=== PATIENT | male | born 1990 | race Caucasian/White ===

== ENCOUNTER 2017-11-07 19:02 | Emergency (ER) | payer OTHER ==
[~2017-11-07] VITALS: Ht 177.8 cm; Wt 81.6 kg
[~2017-11-07 19:02] MED LIST: ACETAMINOPHEN-1 EAC1 PO; ACYCLOVIR 800800 MG PO; BACTRIM DS TAB1 EACH PO; CATAPRES0.2 MG PO; CLEOCIN HCL150 MG PO; CLONIDINE; CLONIDINE HCL0.3 M3 PO; DICLOFENAC SODI75 MG PO; DIFLUCAN150 MG PO; FLEXERIL PO; HYDROCODONE-AP1 EAC6 PO; IBUPROFEN 800800 M1 PO; IBUPROFEN 800800 MG PO; KEFLEX500 MG PO; KETOCONAZOLE60 GM TP; MEDROLDOSEPACK PO; MINOCIN100 MG PO; NOHOMEMEDICATIONS; NORCO 5-325 TA1 EAC1 PO; OMEPRAZOLE 20 M20 M1 PO; OXYCODONE HCL 55 MG PO; PEPCID20 MG PO; PROAIR HFA8.5 GM INH; ULTRAM 50MG TAB50 MG PO; VENTOLIN HFA 1818 GM INH
[2017-11-07 19:23] LABS: ABSOLUTE BASOPHILS 0.1 thou/uL (0.0-0.2); ABSOLUTE EOSINOPHILS 0.1 thou/uL (0.0-0.7); ABSOLUTE MONOCYTES 0.4 thou/uL (0.0-1.2); ABSOLUTE NEUTROPHILS 12.8 thou/uL (1.6-8.1); ANION GAP 9 mmol/L (7-16); BASOPHILS 0.4 %; BUN 8 mg/dL (7-18); CHLORIDE 100 mmol/L (98-107); CO2 26 mmol/L (21-32); EOSINOPHILS 0.5 %; GLUCOSE 117 mg/dL (70-99); HEMATOCRIT 44.2 % (42.0-52.0); HEMOGLOBIN 15.2 gm/dL (14.0-18.0); LYMPHOCYTES 13.1 %; MCH 31.2 pg (26.0-34.0); MCHC 34.3 g/dL (28.0-37.0); MCV 91.2 fL (80.0-100.0); MONOCYTES 2.6 %; MPV 9.1 fl. (7.2-11.1); NUCLEATED RBCS 0 /100WBC; PLATELET COUNT* 221 thou/uL (150-400); POLYS 83.4 %; POTASSIUM 4.1 mmol/L (3.5-5.1); RBC 4.85 mil/uL (4.50-6.00); RDW-CV 12.9 % (10.5-14.5); SODIUM 135 mmol/L (136-145); WBC 15.4 thou/uL (4.0-11.0)
[2017-11-07 19:30] LABS: ALBUMIN 4.4 g/dL (3.4-5.0); ALKALINE PHOSPHATASE 65 U/L (46-116); LIPASE 103 U/L (73-393); SGOT 25 U/L (15-37); SGPT 31 U/L (30-65); TOTAL BILIRUBIN 0.6 mg/dL (<0.1-1.0); TOTAL PROTEIN 7.8 g/dL (6.4-8.2); TROPONIN-I LEVEL <0.06 ng/mL (<0.06)
[2017-11-07] MEDS ORDERED: ZOLOFT25 MG PO (19:40)
[2017-11-07] MEDS ORDERED: CARVEDILOL12.5 MG (19:40)
[2017-11-07 20:19] LABS: AMP/METHAMP Negative (Negative); BARBITURATES Negative (Negative); BENZODIAZEPINES Negative (Negative); COCAINE Negative (Negative); METHADONE Negative (Negative); OPIATES Negative (Negative); PCP Negative (Negative); THC Negative (Negative)
[2017-11-07] MEDS ORDERED: TRAMADOL 50 MG50 MG PO (20:52)
[2017-11-07 21:19] VITALS: BP 154/72
--- NOTE | 2017-11-08 12:41 | EKG ---
[place] [address] ELECTROCARDIOGRAM REPORT Name: DANIELLE CAMPUZANO Room: [facility]#: [id number] Admission: 11/07/17 Attend Phys: Discharge: 11/07/17 Date of : [birth year] Report #: [id number] THIS REPORT FOR: //name// [facility] ED Test Date: 2017-11-07 Test Time: 19:03:46 Pat Name: DANIELLE CAMPUZANO Department: Room: Gender: M Boot Maker: CORNELIO : 1990 Requested By: Ruthann Polk Order Number: [id number] Reading MD: Gerry Mccormick Measurements Intervals [place] Rate: 57 P: 21 ME: 147 QRS: 69 QRSD: 110 T: 236 QT: 428 QTc: 417 Interpretive Statements Sinus rhythm LVH with IVCD and secondary repol abnrm ST depr, consider ischemia, inferior leads Anterior ST elevation, probably due to LVH Compared to ECG 12/07/2016 20:09:49 Intraventricular conduction delay now present Sinus arrhythmia no longer present T-wave abnormality no longer present Possible ischemia still present ST (T wave) deviation still present Electronically Signed On 11-08-2017 12:40:54 BACON SKINNER by Gerry Mccormick [email or web address] <ELECTRONICALLY SIGNED> By: Jose Mccormick MD, FAC 11/08/17 1240 02 02 Jose Mccormick MD, [facility] /EPI
[2018-01-25] MEDS ORDERED: AMLODIPINE BESYL5 M1 PO (11:24)
[2018-01-25] MEDS ORDERED: ASPIRIN325 PO (11:24)
[2018-01-25] MEDS ORDERED: AUGMENTIN 875-1 EACH PO (11:24)
[2018-01-27] MEDS ORDERED: IBUPROFEN 800800 M1 PO ×2 (10:46→23:42)
[2018-01-27] MEDS ORDERED: TRAMADOL 50 MG50 MG PO (10:46)
[2018-01-30] MEDS ORDERED: NORCO 5-325 TA1 EACH PO (17:17)
[2018-05-25] MEDS ORDERED: MOBIC7.5 MG PO (13:15)
[2018-05-25] MEDS ORDERED: CETIRIZINE HCL5 MG PO (13:19)
== END 2017-11-07 21:20 | disposition home or self-care (01) ==
LOC: M.ERS 19:02
PROVIDERS: Emergency Medicine
DX: G89.29 Other chronic pain (principal); R10.11 Right upper quadrant pain; J45.909 Unspecified asthma, uncomplicated; F41.9 Anxiety disorder, unspecified; I10 Essential (primary) hypertension; F17.210 Nicotine dependence, cigarettes, uncomplicated; Z88.0 Allergy status to penicillin

== ENCOUNTER 2017-11-26 04:14 | Emergency (ER) | payer OTHER ==
[~2017-11-26] VITALS: Ht 177.8 cm; Wt 81.7 kg
[~2017-11-26 04:14] MED LIST changes: +CARVEDILOL12.5 MG; +TRAMADOL 50 MG50 MG PO; +ZOLOFT25 MG PO
[2017-11-26] MEDS ORDERED: CLONIDINE0.1 PO (04:29)
[2017-11-26] MEDS ORDERED: ATIVAN0.5 MG PO (04:29)
[2017-11-26] MEDS ORDERED: HYDROCODONE-AP1 EAC6 PO (04:30)
[2017-11-26 04:50] VITALS: BP 135/85
[2018-01-25] MEDS ORDERED: AMLODIPINE BESYL5 M1 PO (11:24)
[2018-01-25] MEDS ORDERED: AUGMENTIN 875-1 EACH PO (11:24)
[2018-01-25] MEDS ORDERED: ASPIRIN325 PO (11:24)
[2018-01-27] MEDS ORDERED: TRAMADOL 50 MG50 MG PO (10:46)
[2018-01-27] MEDS ORDERED: IBUPROFEN 800800 M1 PO ×2 (10:46→23:42)
[2018-01-30] MEDS ORDERED: NORCO 5-325 TA1 EACH PO (17:17)
[2018-05-25] MEDS ORDERED: MOBIC7.5 MG PO (13:15)
[2018-05-25] MEDS ORDERED: CETIRIZINE HCL5 MG PO (13:19)
== END 2017-11-26 04:51 | disposition home or self-care (01) ==
LOC: M.ERS 04:14
DX: Z71.1 Person with feared health complaint in whom no diagnosis is made (principal); F32.9 Major depressive disorder, single episode, unspecified; F41.9 Anxiety disorder, unspecified; I10 Essential (primary) hypertension; F17.210 Nicotine dependence, cigarettes, uncomplicated; Z88.0 Allergy status to penicillin

== ENCOUNTER 2017-12-16 00:36 | Emergency (ER) | payer OTHER ==
[~2017-12-16] VITALS: Ht 175.3 cm; Wt 81.7 kg
[~2017-12-16 00:36] MED LIST changes: +ATIVAN0.5 MG PO; +CLONIDINE0.1 PO
[2017-12-16] MEDS ORDERED: LORAZEPAM 1 MG T1 M1 PO (00:45)
[2017-12-16] MEDS ORDERED: BUSPIRONE HCL15 MG PO (00:46)
[2017-12-16] MEDS ORDERED: CLONIDINE0.1 PO (01:07)
[2017-12-16 01:24] VITALS: BP 143/68
--- NOTE | 2017-12-16 10:00 | EKG ---
[place] [address] ELECTROCARDIOGRAM REPORT Name: DANIELLE CAMPUZANO [id number] Admission: 12/16/17 Attend Phys: Discharge: 12/16/17 Date of : [birth year] Report #: [id number] THIS REPORT FOR: //name// [facility] ED Test Date: 2017-12-16 Test Time: 00:42:29 Pat Name: DANIELLE CAMPUZANO Department: Room: Gender: M Keno Writer / Runner: MICAH : 1990 Requested By: Ruthann Polk Order Number: [id number] MD: Danielle Dee Measurements Intervals [place] Rate: 62 P: 32 [place]: 153 QRS: 80 QRSD: 105 T: 261 QT: 521 QTc: 530 Interpretive Statements Sinus rhythm Probable left atrial enlargement LVH with secondary repolarization abnormality ST depr, consider ischemia, inferior leads Anterior ST elevation, probably due to LVH Compared to ECG 11/07/2017 19:03:46 Possible ischemia still present ST (T wave) deviation still present Electronically Signed On 12-16-2017 10:00:22 CDT by Danielle Dee [email or web address] <ELECTRONICALLY SIGNED> By: Danielle Dee MD, FACC 12/16/17 1000 0042 0042 Danielle Dee MD, [facility] /EPI
[2018-01-25] MEDS ORDERED: AUGMENTIN 875-1 EACH PO (11:24)
[2018-01-25] MEDS ORDERED: ASPIRIN325 PO (11:24)
[2018-01-25] MEDS ORDERED: AMLODIPINE BESYL5 M1 PO (11:24)
[2018-01-27] MEDS ORDERED: IBUPROFEN 800800 M1 PO ×2 (10:46→23:42)
[2018-01-27] MEDS ORDERED: TRAMADOL 50 MG50 MG PO (10:46)
[2018-01-30] MEDS ORDERED: NORCO 5-325 TA1 EACH PO (17:17)
[2018-05-25] MEDS ORDERED: MOBIC7.5 MG PO (13:15)
[2018-05-25] MEDS ORDERED: CETIRIZINE HCL5 MG PO (13:19)
== END 2017-12-16 01:24 | disposition home or self-care (01) ==
LOC: M.ERS 00:36
DX: F41.9 Anxiety disorder, unspecified (principal); F32.9 Major depressive disorder, single episode, unspecified; I10 Essential (primary) hypertension; F17.210 Nicotine dependence, cigarettes, uncomplicated; Z88.0 Allergy status to penicillin

== ENCOUNTER 2017-12-25 22:17 | Emergency (ER) | payer OTHER ==
[~2017-12-25] VITALS: Ht 177.8 cm; Wt 77.1 kg
[~2017-12-25 22:17] MED LIST changes: +BUSPIRONE HCL15 MG PO; +LORAZEPAM 1 MG T1 M1 PO
[2017-12-25] MEDS ORDERED: ATIVAN1 MG PO (23:33)
[2017-12-25] MEDS ORDERED: CLONIDINE0.1 PO (23:33)
[2017-12-26 00:06] VITALS: BP 137/61
[2018-01-25] MEDS ORDERED: AMLODIPINE BESYL5 M1 PO (11:24)
[2018-01-25] MEDS ORDERED: ASPIRIN325 PO (11:24)
[2018-01-25] MEDS ORDERED: AUGMENTIN 875-1 EACH PO (11:24)
[2018-01-27] MEDS ORDERED: TRAMADOL 50 MG50 MG PO (10:46)
[2018-01-27] MEDS ORDERED: IBUPROFEN 800800 M1 PO ×2 (10:46→23:42)
[2018-01-30] MEDS ORDERED: NORCO 5-325 TA1 EACH PO (17:17)
[2018-05-25] MEDS ORDERED: MOBIC7.5 MG PO (13:15)
[2018-05-25] MEDS ORDERED: CETIRIZINE HCL5 MG PO (13:19)
== END 2017-12-26 00:08 | disposition home or self-care (01) ==
LOC: M.ERS 22:17
DX: F41.9 Anxiety disorder, unspecified (principal); Z76.0 Encounter for issue of repeat prescription; F32.9 Major depressive disorder, single episode, unspecified; I10 Essential (primary) hypertension; Z88.0 Allergy status to penicillin

== ENCOUNTER 2018-01-08 18:11 | Emergency (ER) | payer OTHER ==
[~2018-01-08] VITALS: Ht 177.8 cm; Wt 72.6 kg
[~2018-01-08 18:11] MED LIST changes: +ATIVAN1 MG PO
[2018-01-08] MEDS ORDERED: CLONIDINE0.1 PO (18:24)
[2018-01-08 18:48] VITALS: BP 159/90
[2018-01-25] MEDS ORDERED: AUGMENTIN 875-1 EACH PO (11:24)
[2018-01-25] MEDS ORDERED: ASPIRIN325 PO (11:24)
[2018-01-25] MEDS ORDERED: AMLODIPINE BESYL5 M1 PO (11:24)
[2018-01-27] MEDS ORDERED: TRAMADOL 50 MG50 MG PO (10:46)
[2018-01-27] MEDS ORDERED: IBUPROFEN 800800 M1 PO ×2 (10:46→23:42)
[2018-01-30] MEDS ORDERED: NORCO 5-325 TA1 EACH PO (17:17)
[2018-05-25] MEDS ORDERED: MOBIC7.5 MG PO (13:15)
[2018-05-25] MEDS ORDERED: CETIRIZINE HCL5 MG PO (13:19)
== END 2018-01-08 18:40 | disposition home or self-care (01) ==
LOC: M.ERS 18:11
DX: F41.9 Anxiety disorder, unspecified (principal); I10 Essential (primary) hypertension; Z76.0 Encounter for issue of repeat prescription; F32.9 Major depressive disorder, single episode, unspecified; F17.210 Nicotine dependence, cigarettes, uncomplicated

== ENCOUNTER 2018-01-21 09:40 | Inpatient (IN) | payer OTHER ==
[~2018-01-21] VITALS: Ht 177.8 cm; Wt 71.7 kg
[2018-01-21] VITALS (7 sets, daily range): BP systolic 81–137; BP diastolic 37–60
[2018-01-21 10:30] LABS: HEMATOCRIT 44.9 % (42.0-52.0); HEMOGLOBIN 15.4 gm/dL (14.0-18.0); MCH 30.4 pg (26.0-34.0); MCHC 34.3 g/dL (28.0-37.0); MCV 88.8 fL (80.0-100.0); MPV 8.3 fl. (7.2-11.1); RBC 5.06 mil/uL (4.50-6.00); WBC 7.5 thou/uL (4.0-11.0)
[2018-01-21 11:17] LABS: ANION GAP 11 mmol/L (7-16); BUN 10 mg/dL (7-18); CALCIUM 9.2 mg/dL (8.5-10.1); CHLORIDE 105 mmol/L (98-107); CO2 26 mmol/L (21-32); CREATININE 0.9 mg/dL (0.6-1.3); GLUCOSE 115 mg/dL (70-99); POTASSIUM 4.3 mmol/L (3.5-5.1); SODIUM 142 mmol/L (136-145)
[2018-01-21 11:27] LABS: ALBUMIN 4.2 g/dL (3.4-5.0); ALKALINE PHOSPHATASE 56 U/L (46-116); SGOT 36 U/L (15-37); SGPT 48 U/L (30-65); TOTAL BILIRUBIN 1.3 mg/dL (<0.1-1.0); TOTAL PROTEIN 7.4 g/dL (6.4-8.2); TROPONIN-I LEVEL <0.06 ng/mL (<0.06)
[2018-01-21 13:45] LABS: AMP/METHAMP Negative (Negative); BARBITURATES Negative (Negative); BENZODIAZEPINES Negative (Negative); COCAINE Negative (Negative); METHADONE Negative (Negative); OPIATES Negative (Negative); PCP Negative (Negative); THC Negative (Negative)
--- NOTE | 2018-01-21 15:33 | 2DMMODE ---
[place] [address] 2 D/M-MODE ECHOCARDIOGRAM Name: DANIELLE CAMPUZANO Room: [address] IN [facility]#: [id number] Admission: 01/21/18 Attend Phys: Monika Schaeffer, Discharge: Date of : 86 Date of Service: 01/21/18 1532 Report #: [id number] THIS REPORT FOR: //name// APPROVED REPORT Study performed: 01/21/2018 13:20:30 EXAM: Comprehensive 2D, Doppler, and color-flow Echocardiogram Patient Location: In-Patient Room #: ER Status: routine BSA: 1.90 HR: 47 bpm BP: 154/96 mmHg Rhythm: Bradycardia Other Information Study Quality: Good Indications Bradycardia 2D Dimensions LVEF(%): 67.25 (>50%) IVSd: 12.67 (7-11mm) LVOT Diam: 19.68 (18-24mm) LVDd: 47.25 mm PWd: 11.35 (7-11mm) Ascending Ao: 30.77 (22-36mm) LVDs: 29.62 (25-40mm) Aortic Root: 30.30 mm Rodriguez's LVEF: 67.25 % Volumes Left Atrial Volume (Systole) LA ESV Index: 32.00 mL/m2 Aortic Valve AoV Peak Griffin.: 1.43 m/s AO Peak Gr.: 8.21 mmHg LVOT Max P.66 mmHg AO Mean Gr.: 4.26 mmHg LVOT Mean P.55 mmHg LVOT Max V: 1.38 m/s AO V2 VTI: 26.04 cm LVOT Mean V: 0.85 m/s MAGALI (VTI): 3.26 cm2 LVOT V1 VTI: 27.91 cm Mitral Valve E/A Ratio: 1.05 [place] [address] 2 D/M-MODE ECHOCARDIOGRAM Name: DANIELLE CAMPUZANO Room: [address] IN .R.#: [id number] Admission: 01/21/18 Attend Phys: Monika Schaeffer, Discharge: Date of : 86 Date of Service: 01/21/18 1532 Report #: [id number] MV Decel. Time: 210.24 ms MV E Max Griffin.: 0.91 m/s MV PHT: 60.97 ms MVA (PHT): 3.61 cm2 TDI E/Lateral E': 8.27 E/Medial E': 10.11 Medial E' Griffin.: 0.09 m/s Lateral E' Griffin.: 0.11 m/s Pulmonary Valve PV Peak Griffin.: 1.08 m/s PV Peak Gr.: 4.68 mmHg Left Ventricle The left ventricle is normal size. There is normal LV segmental wall motion. Mild concentric left ventricular hypertrophy. Left ventricular systolic function is normal. The left ventricular ejection fraction is within the normal range. LVEF is 60-65%. The left ventricular diastolic function is normal. Right Ventricle The right ventricle is normal size. The right ventricular systolic function is normal. Atria The left atrium size is normal. The right atrium size is normal. Aortic Valve Mild aortic valve sclerosis. Trace aortic regurgitation. There is no aortic valvular stenosis. Mitral Valve The mitral valve is normal in structure. Mild mitral regurgitation. No evidence of mitral valve stenosis. Tricuspid Valve The tricuspid valve is normal in structure. Unable to assess PA pressure. Trace tricuspid regurgitation. Pulmonic Valve The pulmonary valve is normal in structure. There is no pulmonic valvular regurgitation. Great Vessels The aortic root is normal in size. IVC [place] [address] 2 D/M-MODE ECHOCARDIOGRAM Name: DANIELLE CAMPUZANO Room: [address] IN [facility]#: [id number] Admission: 01/21/18 Attend Phys: Monika Schaeffer, Discharge: Date of : 86 Date of Service: 01/21/18 1532 Report #: [id number] collapses with >50% inspiration Pericardium There is no pericardial effusion. <Conclusion> The left ventricle is normal size. Mild concentric left ventricular hypertrophy. Left ventricular systolic function is normal. The left ventricular ejection fraction is within the normal range. LVEF is 60-65%. The left ventricular diastolic function is normal. The right ventricle is normal size. The left atrium size is normal. Mild aortic valve sclerosis. Trace aortic regurgitation. There is no aortic valvular stenosis. The mitral valve is normal in structure. Mild mitral regurgitation. The tricuspid valve is normal in structure. IVC is normal in size and collapses with >50% inspiration There is no pericardial effusion. There is normal LV segmental wall motion. <ELECTRONICALLY SIGNED> By: Jevon Serrano MD, FACC 01/21/18 153 31 31 Jevon Serrano MD, FACC /INF
--- NOTE | 2018-01-21 16:38 | EKG ---
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: Jo-Ann YOUNGER : 1990 Requested By: Uri Beebe Order Number: [id number] MD: Jevon Serrano Measurements Intervals [place] Rate: 35 P: 25 [place]: 142 QRS: 72 QRSD: 102 T: 239 QT: 506 QTc: 386 Interpretive Statements Sinus bradycardia Probable LVH with secondary repol abnrm Repol abnrm, global ischemia, diffuse leads Anterior ST elevation, probably due to LVH Compared to ECG 12/16/2017 00:42:29 Sinus rate has decreased Possible ischemia still present ST (T wave) deviation still present Electronically Signed On 01-21-2018 16:38:44 CDT by Jevon Serrano [email or web address] <ELECTRONICALLY SIGNED> By: Jevon Serrano MD, FAC 01/21/18 1638 1018 1018 Jevon Serrano MD, [facility] /EPI
--- NOTE | 2018-01-21 16:40 | EKG ---
[place] [address] ELECTROCARDIOGRAM REPORT Name: DANIELLE CAMPUZANO Room: [place] [address] ADM IN .R.#: [id number] Admission: 01/21/18 Attend Phys: Monika Schaeffer MD Discharge: Date of : [birth year] Report #: [id number] THIS REPORT FOR: //name// [facility] ED Test Date: 2018-01-21 Test Time: 12:39:08 Pat Name: DANIELLE CAMPUZANO Department: Room: [facility] Gender: Set Builder: Jo-Ann YOUNGER : 1990 Requested By: Uri Beebe Order Number: [id number] MD: Jevon Serrano Measurements Intervals [place] Rate: 30 P: 36 [place]: 166 QRS: 70 QRSD: 115 T: 237 QT: 530 QTc: 375 Interpretive Statements Sinus bradycardia LVH with IVCD and secondary repol abnrm ST depr, consider ischemia, inferior leads Anterior ST elevation, probably due to LVH Compared to ECG 12/16/2017 00:42:29 Intraventricular conduction delay now present Possible ischemia still present ST (T wave) deviation still present Electronically Signed On 01-21-2018 16:40:26 CDT by Jevon Serrano [email or web address] <ELECTRONICALLY SIGNED> By: Jevon Serrano MD, FACC 01/21/18 1640 1239 1239 Jevon Serrano MD, FAC /EPI
[2018-01-22] VITALS (11 sets, daily range): BP systolic 98–158; BP diastolic 4–90
[2018-01-22 04:55] LABS: CALCIUM 9.1 mg/dL (8.5-10.1); CREATININE 0.9 mg/dL (0.6-1.3); POTASSIUM 4.1 mmol/L (3.5-5.1)
[2018-01-22 05:00] LABS: ALBUMIN 4.7 g/dL (3.4-5.0); TOTAL BILIRUBIN 0.9 mg/dL (<0.1-1.0)
[2018-01-22 10:46] LABS: AMP/METHAMP Negative (Negative); BARBITURATES Negative (Negative); BENZODIAZEPINES Negative (Negative); COCAINE Negative (Negative); METHADONE Negative (Negative); OPIATES POSITIVE (Negative); PCP Negative (Negative); THC Negative (Negative)
--- NOTE | 2018-01-22 11:33 | EKG ---
[place] [address] ELECTROCARDIOGRAM REPORT Name: DANIELLE CAMPUZANO Room: [address] ADM IN M.R.#: [id number] Admission: 01/21/18 Attend Phys: Monika Schaeffer MD Discharge: Date of : [birth year] Report #: [id number] THIS REPORT FOR: //name// [facility] Test Date: 2018-01-21 Test Time: 23:33:12 Pat Name: DANIELLE CAMPUZANO Department: Room: [address] Gender: M Hog Grader: Jo-Ann ARANA RN : 1990 Requested By: Chivo Desai Order Number: [id number] Marcial MD: Chivo Desai Measurements Intervals [place] Rate: 38 P: 51 [place]: 156 QRS: 75 QRSD: 116 T: 223 QT: 502 QTc: 399 Interpretive Statements Sinus bradycardia LVH with IVCD and secondary repol abnrm Anterior ST elevation, probably due to LVH Baseline wander in lead(s) V1,V4,V6 Compared to ECG 01/21/2018 12:39:08 Possible ischemia no longer present ST (T wave) deviation still present Electronically Signed On 01-22-2018 11:32:45 CDT by Chivo Desai [email or web address] <ELECTRONICALLY SIGNED> By: Chivo Desai MD, FACC 01/22/18 1132 2333 2333 Chivo Desai MD, FACC /EPI
[2018-01-22 15:07] LABS: HEPATITIS B SURFACE AG Negative (Negative)
[2018-01-22 21:07] LABS: HIV-1/HIV-2 ANTIBODY Non Reactive (Non Reactive)
[2018-01-23 03:55] VITALS: BP 127/74
[2018-01-23 04:47] LABS: HEMATOCRIT 39.3 % (42.0-52.0); HEMOGLOBIN 13.5 gm/dL (14.0-18.0); MCH 30.5 pg (26.0-34.0); MCHC 34.3 g/dL (28.0-37.0); MPV 9.1 fl. (7.2-11.1); RBC 4.41 mil/uL (4.50-6.00); RDW-CV 13.3 % (10.5-14.5); WBC 6.8 thou/uL (4.0-11.0)
[2018-01-23 05:05] LABS: ALBUMIN 3.4 g/dL (3.4-5.0); CALCIUM 8.5 mg/dL (8.5-10.1); CREATININE 0.8 mg/dL (0.6-1.3); POTASSIUM 4.3 mmol/L (3.5-5.1); TOTAL BILIRUBIN 0.5 mg/dL (<0.1-1.0); TOTAL PROTEIN 5.7 g/dL (6.4-8.2)
[2018-01-23 08:00] VITALS: BP 125/80
[2018-01-23 12:56] VITALS: BP 122/73
[2018-01-23 16:55] VITALS: BP 150/95
[2018-01-23 20:00] VITALS: BP 153/83
[2018-01-24] VITALS (7 sets, daily range): BP systolic 104–136; BP diastolic 44–83
[2018-01-24 04:27] LABS: HEMATOCRIT 40.1 % (42.0-52.0); HEMOGLOBIN 13.8 gm/dL (14.0-18.0); MCH 30.5 pg (26.0-34.0); MCHC 34.4 g/dL (28.0-37.0); MCV 88.7 fL (80.0-100.0); MPV 9.4 fl. (7.2-11.1); RBC 4.52 mil/uL (4.50-6.00); RDW-CV 13.1 % (10.5-14.5)
[2018-01-24 04:39] LABS: ALBUMIN 3.5 g/dL (3.4-5.0); CALCIUM 8.8 mg/dL (8.5-10.1); CREATININE 0.8 mg/dL (0.6-1.3); MAGNESIUM 2.1 mg/dL (1.8-2.4); POTASSIUM 4.2 mmol/L (3.5-5.1); TOTAL BILIRUBIN 0.4 mg/dL (<0.1-1.0); TOTAL PROTEIN 6.1 g/dL (6.4-8.2)
--- NOTE | 2018-01-24 13:23 | EKG ---
[place] [address] ELECTROCARDIOGRAM REPORT Name: DANIELLE CAMPUZANO Room: [address] ADM IN M.R.#: [id number] Admission: 01/21/18 Attend Phys: Monika Schaeffer MD Discharge: Date of : [birth year] Report #: [id number] THIS REPORT FOR: //name// [facility] Test Date: 2018-01-23 Test Time: 12:24:26 Pat Name: DANIELLE LUONGY Department: Room: [address] Gender: M Tank Farm Operator: [facility] : 1990 Requested By: Monika Schaeffer Order Number: [id number] Marcial MD: Chivo Desai Measurements Intervals [place] Rate: 35 P: 0 CT: 160 QRS: 62 QRSD: 111 T: 232 QT: 485 QTc: 370 Interpretive Statements Sinus bradycardia Probable left ventricular hypertrophy Abnormal T, consider ischemia, diffuse leads Compared to previous EKG No significant changes noted Electronically Signed On 01-24-2018 13:23:17 CDT by Chivo Desai [email or web address] <ELECTRONICALLY SIGNED> By: Chivo Desai MD, [facility] 01/24/18 1323 1224 1224 Chivo Desai MD, FAC /EPI
[2018-01-25 03:46] VITALS: BP 111/47
[2018-01-25 05:39] LABS: HEMATOCRIT 39.8 % (42.0-52.0); HEMOGLOBIN 13.8 gm/dL (14.0-18.0); MCH 30.5 pg (26.0-34.0); MCHC 34.6 g/dL (28.0-37.0); MCV 88.2 fL (80.0-100.0); MPV 9.6 fl. (7.2-11.1); RBC 4.51 mil/uL (4.50-6.00); RDW-CV 13.5 % (10.5-14.5); WBC 11.3 thou/uL (4.0-11.0)
[2018-01-25 06:05] LABS: ALBUMIN 3.5 g/dL (3.4-5.0); CALCIUM 8.9 mg/dL (8.5-10.1); CREATININE 0.9 mg/dL (0.6-1.3); POTASSIUM 4.1 mmol/L (3.5-5.1); TOTAL BILIRUBIN 0.4 mg/dL (<0.1-1.0); TOTAL PROTEIN 6.2 g/dL (6.4-8.2)
[2018-01-25 07:54] VITALS: BP 117/63
[2018-01-25] MEDS ORDERED: AUGMENTIN 875-1 EACH PO ×2 (11:24)
[2018-01-25] MEDS ORDERED: ASPIRIN325 PO ×2 (11:24)
[2018-01-25] MEDS ORDERED: AMLODIPINE BESYL5 M1 PO ×2 (11:24)
[2018-01-25 11:58] VITALS: BP 116/53
[2018-01-25 16:00] VITALS: BP 113/64
[2018-01-25 20:00] VITALS: BP 123/59
[2018-01-25 23:40] VITALS: BP 130/57
[2018-01-26] VITALS (11 sets, daily range): BP systolic 106–156; BP diastolic 35–98
[2018-01-26 09:02] LABS: AMP/METHAMP Negative (Negative); BARBITURATES Negative (Negative); BENZODIAZEPINES Negative (Negative); COCAINE Negative (Negative); METHADONE Negative (Negative); OPIATES Negative (Negative); PCP Negative (Negative); THC Negative (Negative)
--- NOTE | 2018-01-26 16:42 | EKG ---
[place] [address] ELECTROCARDIOGRAM REPORT Name: DANIELLE CAMPUZANO Room: [address] ADM IN M.R.#: [id number] Admission: 01/21/18 Attend Phys: Monika Schaeffer MD Discharge: Date of : [birth year] Report #: [id number] THIS REPORT FOR: //name// [facility] Test Date: 2018-01-26 Test Time: 11:38:11 Pat Name: DANIELLE CAMPUZANO Department: Room: [address] Gender: M Webbing Weaver: : 1990 Requested By: Chivo Desai Order Number: [id number] Marcial MD: Chivo Desai Measurements Intervals [place] Rate: 47 P: 28 [place]: 163 QRS: 69 QRSD: 110 T: -87 QT: 437 QTc: 387 Interpretive Statements Sinus bradycardia LVH with IVCD and secondary repol abnrm Anterior ST elevation, probably due to LVH Baseline wander in lead(s) II,III,aVF Compared to ECG 01/23/2018 12:24:26 Intraventricular conduction delay now present Early repolarization now present ST (T wave) deviation now present T-wave abnormality no longer present Possible ischemia no longer present Electronically Signed On 01-26-2018 16:42:07 CDT by Chivo Desai [email or web address] <ELECTRONICALLY SIGNED> By: Chivo Desai MD, [facility] 01/26/18 1642 1138 1138 Chivo Desai MD, [facility] /EPI
--- NOTE | 2018-01-26 17:13 | TEE ---
[place] [address] TRANSESOPHAGEAL ECHOCARDIOGRAM Name: DANIELLE CAMPUZANO Room: [address] IN [facility]#: [id number] Admission: 01/21/18 Attend Phys: Monika Schaeffer, Discharge: Date of : 86 Date of Service: 01/26/18 1712 Report #: [id number] THIS REPORT FOR: //name// APPROVED REPORT Study performed: 01/26/2018 11:33:24 EXAM: Transesophageal Echocardiogram Patient Location: In-Patient Room #: 219 Status: routine BSA: 1.91 HR: 49 bpm BP: 143/53 mmHg Rhythm: Bradycardia Indications Murmur Echo Enhancing Agent Indication: Rule out Shunt Agent(s) / Amount(s) Used: Agitated Saline 10 cc Procedure After obtaining informed consent, patient underwent transesophageal echo in the [facility] [employer]. Type of Sedation : General Anesthesia Sedation was administered by Anesthesiologist. Sedation start time: 1157 Case end Time: 1210 Sedation was achieved intravenously with: Propofol (300) Transesophageal probe was inserted and advanced into esophagus without difficulty by Chivo Desai MD, [facility]. Echo enhancement indication: R/O Septal defect. Echo enhancement agent administered: Agitated Saline The ASCENCION was performed without complications. Throughout the procedure, the blood pressure, pulse oximetry, cardiac rhythm, and rate were monitored. The patient tolerated the procedure without adverse effects. Recovery from conscious sedation was uneventful and vital signs were stable. Left Ventricle The left ventricle is normal size. There is normal LV segmental wall motion. There appears to be asymmetric hypertrophy to a moderate [facility] [address] [place] [address] TRANSESOPHAGEAL ECHOCARDIOGRAM Name: DANIELLE CAMPUZANO Room: [address] IN [facility].#: [id number] Admission: 01/21/18 Attend Phys: Monika Schaeffer, Discharge: Date of : 86 Date of Service: 01/26/18 1712 Report #: [id number] degree involving nearly the lateral wall. Left ventricular systolic function is normal. The left ventricular ejection fraction is within the normal range. LVEF is 65-70%. Right Ventricle The right ventricle is normal size. The right ventricular systolic function is normal. Atria No thrombus is visualized in the left atrium or appendage. Interatrial septum is intact without evidence of ASD or PFO. The right atrium size is normal. Aortic Valve The aortic valve is normal in structure. No aortic regurgitation is present. There is no aortic valvular stenosis. Mitral Valve The mitral valve is normal in structure. Mild mitral regurgitation. No evidence of mitral valve stenosis. Tricuspid Valve The tricuspid valve is normal in structure. There is no tricuspid valve regurgitation noted. Pulmonic Valve The pulmonary valve is normal in structure. There is no pulmonic valvular regurgitation. Great Vessels The aortic root is normal in size. Pericardium There is no pericardial effusion. <Conclusion> The left ventricle is normal size. There appears to be asymmetric hypertrophy to a moderate degree involving nearly the lateral wall. Left ventricular systolic function is normal. The left ventricular ejection fraction is within the normal range. LVEF is 65-70%. Interatrial septum is intact without evidence [place] [address] TRANSESOPHAGEAL ECHOCARDIOGRAM Name: DANIELLE CAMPUZANO Room: [address] IN M.R.#: [id number] Admission: 01/21/18 Attend Phys: Monika Schaeffer, Discharge: Date of : 86 Date of Service: 01/26/181711 Report #: [id number] No thrombus is visualized in the left atrium or appendage. Mild mitral regurgitation. <ELECTRONICALLY SIGNED> By: Chivo Desai MD, FACC 01/26/181711 11 11 Chivo Desai MD, FACC /INF
--- NOTE | 2018-01-26 18:30 | CARD ---
[address] [address] CARDIAC CATH REPORT Name: DANIELLE CAMPUZANO Room: [address] IN [facility]#: [id number] Admission: 01/21/18 Attend Phys: Monika Schaeffer MD Discharge: Date of : [birth year] Report #: [id number] THIS REPORT FOR: //name// APPROVED REPORT Study performed: 01/26/2018 14:42:25 Patient Status: In-Patient Room #: 219 Event Personnel: Chivo Desai Laborer [place]chard, Soha Reza RN Strategic Planner, Galen Hung (R) Tan Ritter Diane Monitor Exam: Insertion of Dual Chamber Permanent Pacemaker Indications: severe symptomatic persistent sinus bradycardia The patient is a 27 year-old male with a history of severe symptomatic persistent sinus bradycardia. Conscious Sedation Start time: 15:25 End Time: 16:05 Fentanyl 75 mcg Versed 3 mg Implanted Devices: asgoodasnew electronics GmbHronik Eluna 8 DRT pro-MRI, model #633012, serial #[id number]. Biotronik Solia S 53, model #817998, serial #[id number]. Biotronik Solia S 60, model #053691, serial #[id number] Procedure The patient underwent informed consent. We discussed the details of the procedure including the risks, which include, but not limited to bleeding, infection, vascular damage, cardiac perforation, and pneumothorax. After informed consent was obtained the patient was brought to the interventional radiology lab. The area of the left chest was prepped and draped in sterile fashion. Local anesthesia was achieved with 1% lidocaine. Next after an initial incision was made a device pocket was formed over the left pectoralis muscle using a left coronary and blunt dissection. Next using a micropuncture kit the left subclavian vein was accessed and a safety J guidewire ultimately advanced to the level of the right atrium under fluoroscopic guidance. The guidewire was secured externally with a Shawanda forcep. Utilizing the micropuncture kit a second time the left subclavian vein was accessed. A second safety J guidewire was advanced to the area of the right atrium under fluoroscopic guidance. Next a 7 Trinidadian tear-away introducer was advanced over the free guidewire. Dilator and guidewire were removed and a right ventricular [place] [address] CARDIAC CATH REPORT Name: DANIELLE CAMPUZANO Room: [address]#: [id number] Admission: 01/21/18 Attend Phys: Monika Schaeffer MD Discharge: Date of : 86 Report #: [id number] secure position along the right ventricular septum under fluoroscopic guidance. The lead was actively fixed. Thresholds were checked and deemed to be satisfactory. The tear-away introducer was removed. Next utilizing the remaining guidewire a second 6 Trinidadian tear-away introducer was advanced. The dilator and guidewire were removed has a right atrial lead was advanced to a secure position within the right atrial appendage. The lead was actively fixed. Thresholds were checked and deemed to be satisfactory. The tear-away introducer was then removed. There was no diaphragmatic or phrenic nerve stimulation with maximal outputs. After ensuring adequate slack the atrial and ventricular leads were then secured within the device pocket using the designated cuff and interrupted stitches of 2-0 silk suture. The device pocket was then flushed with antibiotic solution. Next a dual-chamber pulse generator was attached to the atrial and ventricular leads. The pulse generator and redundant lead were then placed within the device pocket. The deep tissues were closed with interrupted stitches of 2-0 Vicryl. The skin incision was then closed with a single subcuticular stitch of 4-0 Vicryl. Several Steri-Strips were placed across the incision. A sterile Telfa dressing was then covered with a Tegaderm. The patient tolerated well without complication. Electrode Parameters P Wave: 3.60 mV R Wave: 13.40 mV Atrial Threshold: 0.8 V at 0.40 ms Ventricular Threshold: 1.0 V at 0.40 ms Ventricular Resistance: 526 ohms 604 ohms Mode: AAIR Lower pacing rate 60 bpm Upper tracking rate 130 bpm Mode switch rate 160 bpm Complications The patient tolerated the procedure well and there were no complications associated with the procedure. Conclusion 1. Severe symptomatic persistent sinus bradycardia. 2. Successful implantation of a dual-chamber pacemaker with atrial and [place] [address] CARDIAC CATH REPORT Name: DANIELLE CAMPUZANO Room: [address] IN ..#: [id number] Admission: 01/21/18 Attend Phys: Monika Schaeffer MD Discharge: Date of : 86 Report #: [id number] Recommendations 1. Follow-up in one week for site check. <ELECTRONICALLY SIGNED> By: Chivo Desai MD, FACC 01/26/181829 29 29Michaehoda Desai MD, FACC /INF
[2018-01-27 04:00] VITALS: BP 142/60
[2018-01-27 08:00] VITALS: BP 120/44; BP 154/81
[2018-01-27] MEDS ORDERED: IBUPROFEN 800800 M1 PO ×3 (10:46→23:42)
[2018-01-27] MEDS ORDERED: TRAMADOL 50 MG50 MG PO ×2 (10:46)
--- NOTE | 2018-01-27 11:12 | EKG ---
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: : 1990 Requested By: Monika Schaeffer Order Number: [id number] Reading MD: Leighton Dee Measurements Intervals [place] Rate: 64 P: 34 [place]: 149 QRS: 76 QRSD: 100 T: 265 QT: 395 QTc: 408 Interpretive Statements Sinus rhythm Probable LVH with secondary repol abnormality Anterior ST elevation, probably due to LVH Compared to ECG 01/26/2018 11:38:11 Sinus bradycardia no longer present ST (T wave) deviation still present Electronically Signed On 01-27-2018 11:12:38 CDT by Leighton Dee [email or web address] <ELECTRONICALLY SIGNED> By: Leighton Dee MD, [facility] 01/27/18 1112 0312 Leighton Dee MD, [facility] /EPI
--- NOTE | 2018-01-27 11:21 | EKG ---
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
--- NOTE | 2018-01-27 11:22 | EKG ---
[place] [address] ELECTROCARDIOGRAM REPORT Name: DANIELLE CAMPUZANO Room: [address] ADM IN M.R.#: [id number] Admission: 01/21/18 Attend Phys: Monika Schaeffer MD Discharge: Date of : [birth year] Report #: [id number] THIS REPORT FOR: //name// [facility] Test Date: 2018-01-27 Test Time: 08:40:39 Pat Name: DANIELLE CAMPUZANO Department: Room: [address] Gender: M Parking Inspector: : 1990 Requested By: Chivo Desai Order Number: [id number] Marcial MD: Danielle Dee Measurements Intervals [place] Rate: 75 P: [place]: 166 QRS: 78 QRSD: 101 T: 259 QT: 406 QTc: 454 Interpretive Statements Atrial-paced and sinus rhythm Probable LVH with secondary repol abnrm Anterior ST elevation, probably due to LVH Electronically Signed On 01-27-2018 11:22:34 CDT by Danielle Dee [email or web address] <ELECTRONICALLY SIGNED> By: Danielle Dee MD, [facility] 01/27/18 1122 9 9 Danielle Dee MD, FACC /EPI
[2018-01-27] MEDS ORDERED: HYDROCODON-ACE1 EAC7 PO (17:24)
[2018-01-27] MEDS ORDERED: ATIVAN1 MG PO (17:59)
[2018-01-27] MEDS ORDERED: NORVASC5 MG PO (23:41)
[2018-01-28] MEDS ORDERED: KEFLEX500 M1 PO (01:02)
[2018-01-30] MEDS ORDERED: NORCO 5-325 TA1 EACH PO (17:17)
[2018-05-25] MEDS ORDERED: MOBIC7.5 MG PO (13:15)
[2018-05-25] MEDS ORDERED: CETIRIZINE HCL5 MG PO (13:19)
== END 2018-01-27 13:54 | disposition home or self-care (01) | DRG 244 ==
LOC: M.ERS 09:40 → M.2W 13:21 → M.TBA-ER 13:21 → M.ICU 16:52 → M.2W 01-22 14:14
PROVIDERS: Emergency Medicine Emergency Medical Services; Family Medicine; Internal Medicine Cardiovascular Disease; Nurse Practitioner Family; ADMIT Internal Medicine
DX: R00.1 Bradycardia, unspecified (principal); F41.9 Anxiety disorder, unspecified; I10 Essential (primary) hypertension; F31.9 Bipolar disorder, unspecified; F12.90 Cannabis use, unspecified, uncomplicated; F17.210 Nicotine dependence, cigarettes, uncomplicated; K04.7 Periapical abscess without sinus; Z91.19 Patient's noncompliance with other medical treatment and regimen; Z79.82 Long term (current) use of aspirin; Z79.899 Other long term (current) drug therapy; Z82.49 Family history of ischemic heart disease and other diseases of the circulatory system

== ENCOUNTER 2018-01-27 15:50 | Emergency (ER) | payer OTHER ==
[~2018-01-27] VITALS: Ht 177.8 cm; Wt 74.8 kg
[~2018-01-27 15:50] MED LIST changes: +AMLODIPINE BESYL5 M1 PO; +ASPIRIN325 PO; +AUGMENTIN 875-1 EACH PO
[2018-01-27 16:46] LABS: ABSOLUTE BASOPHILS 0.1 thou/uL (0.0-0.2); ABSOLUTE EOSINOPHILS 0.2 thou/uL (0.0-0.7); ABSOLUTE MONOCYTES 1.3 thou/uL (0.0-1.2); ABSOLUTE NEUTROPHILS 12.2 thou/uL (1.6-8.1); BASOPHILS 0.6 %; EOSINOPHILS 1.2 %; HEMATOCRIT 50.1 % (42.0-52.0); HEMOGLOBIN 17.1 gm/dL (14.0-18.0); LYMPHOCYTES 12.6 %; MCHC 34.1 g/dL (28.0-37.0); MCV 88.1 fL (80.0-100.0); MONOCYTES 8.4 %; MPV 8.6 fl. (7.2-11.1); NUCLEATED RBCS 0 /100WBC; PLATELET COUNT* 232 thou/uL (150-400); POLYS 77.2 %; RBC 5.69 mil/uL (4.50-6.00); RDW-CV 13.3 % (10.5-14.5); WBC 15.8 thou/uL (4.0-11.0)
[2018-01-27 16:52] LABS: URINE BILIRUBIN NEGATIVE (Negative); URINE BLOOD NEGATIVE (Negative); URINE CLARITY CLEAR; URINE COLOR YELLOW; URINE GLUCOSE-RANDOM NEGATIVE (Negative); URINE KETONES NEGATIVE (Negative); URINE LEUKOCYTES-REFLEX NEGATIVE (Negative); URINE NITRITE-REFLEX NEGATIVE (Negative); URINE PROTEIN NEGATIVE (Negative); URINE UROBILINOGEN 0.2 E.U./dl (0.2-1.0)
[2018-01-27 16:59] LABS: AMP/METHAMP Negative (Negative); BARBITURATES Negative (Negative); BENZODIAZEPINES Negative (Negative); COCAINE Negative (Negative); METHADONE Negative (Negative); OPIATES POSITIVE (Negative); PCP Negative (Negative); THC Negative (Negative)
[2018-01-27 17:02] LABS: ANION GAP 11 mmol/L (7-16); BUN 7 mg/dL (7-18); CALCIUM 9.7 mg/dL (8.5-10.1); CHLORIDE 104 mmol/L (98-107); CO2 28 mmol/L (21-32); CREATININE 0.8 mg/dL (0.6-1.3); GLUCOSE 119 mg/dL (70-99); POTASSIUM 4.1 mmol/L (3.5-5.1); SODIUM 143 mmol/L (136-145)
[2018-01-27 17:04] LABS: INR 1.1; PROTIME 10.3 Seconds (9.20-11.50)
[2018-01-27 17:13] LABS: ALBUMIN 4.6 g/dL (3.4-5.0); ALKALINE PHOSPHATASE 78 U/L (46-116); NT-PRO BRAIN NAT PEPTIDE 2795 pg/mL (<300); SGOT 33 U/L (15-37); SGPT 83 U/L (30-65); TOTAL BILIRUBIN 0.7 mg/dL (<0.1-1.0); TOTAL PROTEIN 8.4 g/dL (6.4-8.2); TROPONIN-I LEVEL <0.06 ng/mL (<0.06)
[2018-01-27] MEDS ORDERED: HYDROCODON-ACE1 EAC7 PO (17:24)
[2018-01-27] MEDS ORDERED: ATIVAN1 MG PO (17:59)
[2018-01-27 18:02] VITALS: BP 167/99
[2018-01-27] MEDS ORDERED: NORVASC5 MG PO (23:41)
[2018-01-27] MEDS ORDERED: IBUPROFEN 800800 M1 PO (23:42)
[2018-01-28] MEDS ORDERED: KEFLEX500 M1 PO (01:02)
--- NOTE | 2018-01-28 09:33 | EKG ---
[place] [address] ELECTROCARDIOGRAM REPORT Name: DANIELLE CM Room: [facility]#: [id number] Admission: 01/27/18 Attend Phys: Discharge: 01/27/18 Date of : [birth year] Report #: [id number] THIS REPORT FOR: //name// [facility] ED Test Date: 2018-01-27 Test Time: 15:45:56 Pat Name: Danielle Cm Department: Room: Gender: M Shoe Cobbler: Jo-Ann SALAS : 1990 Requested By: Isaac Ivy Order Number: [id number] MD: Jaziel Villa Measurements Intervals [place] Rate: 128 P: 68 [place]: 139 QRS: 68 QRSD: 94 T: 242 QT: 317 QTc: 463 Interpretive Statements Sinus tachycardia Probable LVH with secondary repol abnrm ST depression, consider ischemia, diffuse lds Abnormal T, probable ischemia, lateral leads Anterior ST elevation, probably due to LVH Baseline wander in lead(s) I,II,aVR,V3 Compared to ECG 01/27/2018 08:40:39 Possible ischemia now present Possible ischemia now present T-wave abnormality now present Sinus rhythm no longer present Atrial-paced complex(es) or rhythm no longer present ST (T wave) deviation still present Electronically Signed On 01-28-2018 9:33:10 CDT by Jaziel Villa [email or web address] <ELECTRONICALLY SIGNED> By: Jaziel Villa MD, [facility] 01/28/18 0933 1545 1545 Jaziel Villa MD, [facility] /EPI
[2018-01-30] MEDS ORDERED: NORCO 5-325 TA1 EACH PO (17:17)
[2018-05-25] MEDS ORDERED: MOBIC7.5 MG PO (13:15)
[2018-05-25] MEDS ORDERED: CETIRIZINE HCL5 MG PO (13:19)
== END 2018-01-27 18:05 | disposition home or self-care (01) ==
LOC: M.ERS 15:50
PROVIDERS: Emergency Medicine
DX: F41.9 Anxiety disorder, unspecified (principal); R07.9 Chest pain, unspecified; F31.9 Bipolar disorder, unspecified; J45.909 Unspecified asthma, uncomplicated; F17.210 Nicotine dependence, cigarettes, uncomplicated; Z88.8 Allergy status to other drugs, medicaments and biological substances

== ENCOUNTER 2018-01-27 23:34 | Emergency (ER) | payer OTHER ==
[~2018-01-27] VITALS: Ht 177.8 cm; Wt 74.8 kg
[~2018-01-27 23:34] MED LIST changes: +HYDROCODON-ACE1 EAC7 PO
[2018-01-27] MEDS ORDERED: NORVASC5 MG PO (23:41)
[2018-01-27] MEDS ORDERED: IBUPROFEN 800800 M1 PO (23:42)
[2018-01-28 00:03] LABS: ABSOLUTE BASOPHILS 0.1 thou/uL (0.0-0.2); ABSOLUTE EOSINOPHILS 0.4 thou/uL (0.0-0.7); ABSOLUTE MONOCYTES 1.6 thou/uL (0.0-1.2); ABSOLUTE NEUTROPHILS 9.6 thou/uL (1.6-8.1); BASOPHILS 0.6 %; EOSINOPHILS 2.4 %; HEMATOCRIT 44.8 % (42.0-52.0); HEMOGLOBIN 15.4 gm/dL (14.0-18.0); LYMPHOCYTES 20.6 %; MCH 30.2 pg (26.0-34.0); MCHC 34.3 g/dL (28.0-37.0); MCV 88.1 fL (80.0-100.0); MPV 8.9 fl. (7.2-11.1); NUCLEATED RBCS 0 /100WBC; PLATELET COUNT* 205 thou/uL (150-400); POLYS 65.4 %; RBC 5.09 mil/uL (4.50-6.00); RDW-CV 13.5 % (10.5-14.5); WBC 14.8 thou/uL (4.0-11.0)
[2018-01-28 00:11] LABS: ANION GAP 8 mmol/L (7-16); BUN 5 mg/dL (7-18); CALCIUM 9.2 mg/dL (8.5-10.1); CHLORIDE 103 mmol/L (98-107); CO2 29 mmol/L (21-32); CREATININE 0.9 mg/dL (0.6-1.3); GLUCOSE 97 mg/dL (70-99); POTASSIUM 3.7 mmol/L (3.5-5.1); SODIUM 140 mmol/L (136-145)
[2018-01-28 00:15] LABS: APTT 27.3 Seconds (25.0-31.3); INR 1.1; PROTIME 10.7 Seconds (9.20-11.50)
[2018-01-28 00:33] LABS: ALBUMIN 4.2 g/dL (3.4-5.0); ALKALINE PHOSPHATASE 68 U/L (46-116); CK-MB MASS 3.9 ng/mL (<0.5-3.6); LIPASE 184 U/L (73-393); MAGNESIUM 1.9 mg/dL (1.8-2.4); NT-PRO BRAIN NAT PEPTIDE 3121 pg/mL (<300); SGOT 29 U/L (15-37); SGPT 69 U/L (30-65); TOTAL BILIRUBIN 1.1 mg/dL (<0.1-1.0); TOTAL PROTEIN 7.6 g/dL (6.4-8.2); TROPONIN-I LEVEL <0.06 ng/mL (<0.06)
[2018-01-28] MEDS ORDERED: KEFLEX500 M1 PO (01:02)
[2018-01-28 01:26] VITALS: BP 146/90
--- NOTE | 2018-01-28 09:35 | EKG ---
[place] [address] ELECTROCARDIOGRAM REPORT Name: DANIELLE CAMPUZANO Room: [facility]#: [id number] Admission: 01/27/18 Attend Phys: Discharge: 01/28/18 Date of : [birth year] Report #: [id number] THIS REPORT FOR: //name// [facility] ED Test Date: 2018-01-27 Test Time: 23:34:01 Pat Name: DANIELLE CAMPUZANO Department: Room: Gender: M Dye Colorist Dyer: CONNIE : 1990 Requested By: Levy Menezes Order Number: [id number] MD: Jaziel Villa Measurements Intervals [place] Rate: 88 P: 60 [place]: 159 QRS: 70 QRSD: 98 T: 243 QT: 374 QTc: 453 Interpretive Statements Sinus rhythm Probable left atrial enlargement LVH with secondary repolarization abnormality ST depression, consider ischemia, diffuse lds Anterior ST elevation, probably due to LVH Compared to ECG 01/27/2018 15:45:56 Sinus tachycardia no longer present T-wave abnormality no longer present Possible ischemia still present Possible ischemia still present ST (T wave) deviation still present Electronically Signed On 01-28-2018 9:35:20 CDT by Jaziel Villa [email or web address] <ELECTRONICALLY SIGNED> By: Jaziel Villa MD, FAC 01/28/18 0935 2334 2334 Jaziel Villa MD, [facility] /EPI
[2018-01-30] MEDS ORDERED: NORCO 5-325 TA1 EACH PO (17:17)
[2018-05-25] MEDS ORDERED: MOBIC7.5 MG PO (13:15)
[2018-05-25] MEDS ORDERED: CETIRIZINE HCL5 MG PO (13:19)
== END 2018-01-28 01:29 | disposition home or self-care (01) ==
LOC: M.ERS 23:34
PROVIDERS: Family Medicine
DX: R07.9 Chest pain, unspecified (principal); F41.9 Anxiety disorder, unspecified; F31.9 Bipolar disorder, unspecified; J45.909 Unspecified asthma, uncomplicated; F17.210 Nicotine dependence, cigarettes, uncomplicated; Z88.8 Allergy status to other drugs, medicaments and biological substances

== ENCOUNTER → 2018-01-30 | Emergency (ER) | payer OTHER ==
[~2018-01-30] VITALS: Ht 177.8 cm; Wt 75.4 kg
[~2018-01-30] MED LIST changes: +ACCUNEB SO1.25 MG/1 INH; +BENZTROPINE MES1 MG PO; +CARAFATE 1 GM TA1 GM PO; +CETIRIZINE HCL5 MG PO; +CLONIDINE HCL0.2 M2 PO; +COLACE100 MG PO; +HYDROXYZINE HCL25 M1 PO; +KEFLEX500 M1 PO; +MELATONIN3 MG PO; +MOBIC7.5 MG PO; +NAPROSYN500 MG PO; +NORCO 5-325 TA1 EACH PO; +NORVASC5 MG PO; +PROZAC20 MG PO; +RISPERDAL 3 MG T3 M1 PO; +VITAMIN D1000 UNIT PO
[2018-01-30 16:38] LABS: ABSOLUTE BASOPHILS 0.1 thou/uL (0.0-0.2); ABSOLUTE EOSINOPHILS 0.3 thou/uL (0.0-0.7); ABSOLUTE LYMPHOCYTES 1.4 thou/uL (0.8-5.3); ABSOLUTE MONOCYTES 0.8 thou/uL (0.0-1.2); ABSOLUTE NEUTROPHILS 7.7 thou/uL (1.6-8.1); BASOPHILS 0.6 %; EOSINOPHILS 2.8 %; HEMATOCRIT 40.1 % (42.0-52.0); HEMOGLOBIN 13.8 gm/dL (14.0-18.0); LYMPHOCYTES 13.4 %; MCH 30.6 pg (26.0-34.0); MCHC 34.3 g/dL (28.0-37.0); MCV 89.1 fL (80.0-100.0); MONOCYTES 7.9 %; MPV 8.9 fl. (7.2-11.1); NUCLEATED RBCS 0 /100WBC; PLATELET COUNT* 181 thou/uL (150-400); POLYS 75.3 %; RDW-CV 13.4 % (10.5-14.5); WBC 10.2 thou/uL (4.0-11.0)
[2018-01-30 16:49] LABS: ANION GAP 8 mmol/L (7-16); BUN 12 mg/dL (7-18); CALCIUM 8.6 mg/dL (8.5-10.1); CHLORIDE 106 mmol/L (98-107); CO2 30 mmol/L (21-32); CREATININE 0.8 mg/dL (0.6-1.3); GLUCOSE 117 mg/dL (70-99); POTASSIUM 4.5 mmol/L (3.5-5.1); SODIUM 144 mmol/L (136-145)
[2018-01-30 16:50] LABS: APTT 28.7 Seconds (25.0-31.3)
[2018-01-30 17:08] LABS: ALBUMIN 3.6 g/dL (3.4-5.0); ALKALINE PHOSPHATASE 73 U/L (46-116); LIPASE 107 U/L (73-393); MAGNESIUM 2.1 mg/dL (1.8-2.4); NT-PRO BRAIN NAT PEPTIDE 605 pg/mL (<300); SGOT 28 U/L (15-37); SGPT 43 U/L (30-65); TOTAL BILIRUBIN 0.7 mg/dL (<0.1-1.0); TOTAL PROTEIN 7.2 g/dL (6.4-8.2); TROPONIN-I LEVEL <0.06 ng/mL (<0.06)
[2018-01-30 17:28] VITALS: BP 123/53
--- NOTE | 2018-01-31 12:07 | EKG ---
[place] [address] ELECTROCARDIOGRAM REPORT Name: DANIELLE CAMPUZANO Room: [facility]#: [id number] Admission: 01/30/18 Attend Phys: Discharge: Date of : [birth year] Report #: [id number] THIS REPORT FOR: //name// [facility] ED Test Date: 2018-01-30 Test Time: 16:17:46 Pat Name: DANIELLE CAMPUZANO Department: Room: Gender: M Cigar Head Puncher: RICHARD : 1990 Requested By: Levy Menezes Order Number: [id number] MD: Gerry Mccormick Measurements Intervals [place] Rate: 65 P: 34 [place]: 142 QRS: 68 QRSD: 97 T: 231 QT: 402 QTc: 418 Interpretive Statements Sinus rhythm Probable left atrial enlargement LVH with secondary repolarization abnormality Anterior ST elevation, probably due to LVH Compared to ECG 01/27/2018 23:34:01 Possible ischemia no longer present Possible ischemia no longer present ST (T wave) deviation still present Electronically Signed On 01-31-2018 12:07:02 CDT by Gerry Mccormick [email or web address] <ELECTRONICALLY SIGNED> By: Jose Mccormick MD, FACC 01/31/18 1207 1617 1617 F. Gerry Mccormick MD, [facility] /EPI
== END ==
LOC: M.ERS 16:13
PROVIDERS: Family Medicine
DX: R07.9 Chest pain, unspecified (principal); F41.9 Anxiety disorder, unspecified; F31.9 Bipolar disorder, unspecified; J45.909 Unspecified asthma, uncomplicated; Z88.8 Allergy status to other drugs, medicaments and biological substances; F17.210 Nicotine dependence, cigarettes, uncomplicated

== ENCOUNTER 2018-01-31 11:27 | Emergency (ER) | payer OTHER ==
[~2018-01-31] VITALS: Ht 172.7 cm; Wt 72.6 kg
[~2018-01-31 11:27] MED LIST changes: -ACCUNEB SO1.25 MG/1 INH; -BENZTROPINE MES1 MG PO; -CARAFATE 1 GM TA1 GM PO; -CETIRIZINE HCL5 MG PO; -CLONIDINE HCL0.2 M2 PO; -COLACE100 MG PO; -HYDROXYZINE HCL25 M1 PO; -MELATONIN3 MG PO; -MOBIC7.5 MG PO; -NAPROSYN500 MG PO; -PROZAC20 MG PO; -RISPERDAL 3 MG T3 M1 PO; -VITAMIN D1000 UNIT PO
[2018-01-31] MEDS ORDERED: CLONIDINE HCL0.2 M2 PO (11:41)
[2018-01-31 12:04] VITALS: BP 138/65
[2018-02-01] MEDS ORDERED: ULTRAM 50MG TAB50 MG PO (08:52)
[2018-02-01] MEDS ORDERED: AUGMENTIN 875-1 EACH PO (09:08)
--- NOTE | 2018-02-01 14:07 | EKG ---
[place] [address] ELECTROCARDIOGRAM REPORT Name: DANIELLE CAMPUZANO Room: [facility]#: [id number] Admission: 01/31/18 Attend Phys: Discharge: 01/31/18 Date of : [birth year] Report #: [id number] THIS REPORT FOR: //name// [facility] ED Test Date: 2018-01-31 Test Time: 11:47:43 Pat Name: DANIELLE CAMPUZANO Department: Room: Gender: M Oiler And Greaser: CALDERON : 1990 Requested By: Levy Menezes Order Number: [id number] MD: Jevon Serrano Measurements Intervals [place] Rate: 60 P: [place]: 142 QRS: 70 QRSD: 100 T: 229 QT: 412 QTc: 412 Interpretive Statements Atrial-paced complexes Probable LVH with secondary repol abnrm Abnormal T, probable ischemia, lateral leads Anterior ST elevation, probably due to LVH Compared to ECG 01/30/2018 16:17:46 T-wave abnormality now present Possible ischemia now present Electronically Signed On 02-01-2018 14:07:28 CDT by Jevon Serrano [email or web address] <ELECTRONICALLY SIGNED> By: Jevon Serrano MD, [facility] 02/01/18 1407 1147 1147 Jevon Serrano MD, [facility] /EPI
[2018-05-25] MEDS ORDERED: MOBIC7.5 MG PO (13:15)
[2018-05-25] MEDS ORDERED: CETIRIZINE HCL5 MG PO (13:19)
== END 2018-01-31 12:04 | disposition home or self-care (01) ==
LOC: M.ERS 11:27
DX: R52 Pain, unspecified (principal); J45.909 Unspecified asthma, uncomplicated; F31.9 Bipolar disorder, unspecified; Z88.8 Allergy status to other drugs, medicaments and biological substances

== ENCOUNTER 2018-02-01 08:39 | Emergency (ER) | payer OTHER ==
[~2018-02-01] VITALS: Ht 175.3 cm; Wt 68.0 kg
[~2018-02-01 08:39] MED LIST changes: +CLONIDINE HCL0.2 M2 PO
[2018-02-01] MEDS ORDERED: ULTRAM 50MG TAB50 MG PO (08:52)
[2018-02-01 09:07] VITALS: BP 149/70
[2018-02-01] MEDS ORDERED: AUGMENTIN 875-1 EACH PO (09:08)
--- NOTE | 2018-02-01 14:33 | EKG ---
[place] [address] ELECTROCARDIOGRAM REPORT Name: DANIELLE CAMPUZANO [id number] Admission: 02/01/18 Attend Phys: Discharge: 02/01/18 Date of : [birth year] Report #: [id number] THIS REPORT FOR: //name// [facility] ED Test Date: 2018-02-01 Test Time: 08:45:34 Pat Name: DANIELLE CAMPUZANO Department: Room: Gender: M Roving Department Supervisor: Jo-Ann YOUNGER : 1990 Requested By: Joaquin Allen Order Number: [id number] MD: Jevon Serrano Measurements Intervals [place] Rate: 66 P: 50 [place]: 143 QRS: 72 QRSD: 99 T: 241 QT: 394 QTc: 413 Interpretive Statements Sinus rhythm Probable left atrial enlargement LVH with secondary repolarization abnormality ST depression, consider ischemia, diffuse lds Anterior ST elevation, probably due to LVH Compared to ECG 01/30/2018 16:17:46 Possible ischemia now present Possible ischemia now present ST (T wave) deviation still present Electronically Signed On 02-01-2018 14:32:53 CDT by Jevon Serrano [email or web address] <ELECTRONICALLY SIGNED> By: Jevon Serrano MD, [facility] 02/01/18 1432 0845 0845 Jevon Serrano MD, [facility] /EPI
[2018-05-25] MEDS ORDERED: MOBIC7.5 MG PO (13:15)
[2018-05-25] MEDS ORDERED: CETIRIZINE HCL5 MG PO (13:19)
== END 2018-02-01 09:08 | disposition home or self-care (01) ==
LOC: M.ERS 08:39
DX: G89.29 Other chronic pain (principal); R07.89 Other chest pain; F41.9 Anxiety disorder, unspecified; J45.909 Unspecified asthma, uncomplicated; F17.210 Nicotine dependence, cigarettes, uncomplicated; Z95.5 Presence of coronary angioplasty implant and graft; Z88.8 Allergy status to other drugs, medicaments and biological substances

== ENCOUNTER 2018-02-15 07:37 | Emergency (ER) | payer OTHER ==
[~2018-02-15] VITALS: Ht 177.8 cm; Wt 72.6 kg
[2018-02-15] MEDS ORDERED: CARAFATE 1 GM TA1 GM PO (08:23)
[2018-02-15] MEDS ORDERED: NAPROSYN500 MG PO (08:23)
[2018-02-15 08:34] LABS: HEMATOCRIT 44.3 % (42.0-52.0); HEMOGLOBIN 15.2 gm/dL (14.0-18.0); MCHC 34.4 g/dL (28.0-37.0); MCV 87.3 fL (80.0-100.0); MPV 8.1 fl. (7.2-11.1); RBC 5.08 mil/uL (4.50-6.00); RDW-CV 13.5 % (10.5-14.5); WBC 15.1 thou/uL (4.0-11.0)
[2018-02-15 08:45] LABS: ANION GAP 8 mmol/L (7-16); BUN 12 mg/dL (7-18); CALCIUM 8.9 mg/dL (8.5-10.1); CHLORIDE 105 mmol/L (98-107); CO2 28 mmol/L (21-32); CREATININE 0.7 mg/dL (0.6-1.3); GLUCOSE 106 mg/dL (70-99); SODIUM 141 mmol/L (136-145)
[2018-02-15 08:57] LABS: TROPONIN-I LEVEL <0.06 ng/mL (<0.06)
[2018-02-15 10:19] VITALS: BP 134/70
--- NOTE | 2018-02-15 11:54 | EKG ---
[place] [address] ELECTROCARDIOGRAM REPORT Name: DANIELLE CAMPUZANO Room: [facility].#: [id number] Admission: 02/15/18 Attend Phys: Discharge: 02/15/18 Date of : [birth year] Report #: [id number] THIS REPORT FOR: //name// [facility] ED Test Date: 2018-02-15 Test Time: 08:27:50 Pat Name: DANIELLE LUONGY Department: Room: Gender: M Person Investigator: : 1990 Requested By: Clarisa Mock Order Number: [id number] MD: Danielle Dee Measurements Intervals [place] Rate: 70 P: 36 [place]: 151 QRS: 69 QRSD: 97 T: 222 QT: 408 QTc: 441 Interpretive Statements Sinus rhythm Probable LVH with secondary repol abnrm Repol abnrm, global ischemia, diffuse leads Anterior ST elevation, probably due to LVH Compared to ECG 02/01/2018 08:45:34 No significant changes Electronically Signed On 02-15-2018 11:54:05 CDT by Danielle Dee [email or web address] <ELECTRONICALLY SIGNED> By: Danielle Dee MD, [facility] 02/15/18 1154 0827 0827 Danielle Dee MD, [facility] /EPI
[2018-02-16 04:06] LABS: GLYCOHEMOGLOBIN (HGB A1C) 4.7 % (4.8-5.6)
[2018-05-25] MEDS ORDERED: MOBIC7.5 MG PO (13:15)
[2018-05-25] MEDS ORDERED: CETIRIZINE HCL5 MG PO (13:19)
== END 2018-02-15 10:19 | disposition home or self-care (01) ==
LOC: M.ERS 07:37
PROVIDERS: Personal Emergency Response Attendant
DX: M25.512 Pain in left shoulder (principal); F41.9 Anxiety disorder, unspecified; F31.9 Bipolar disorder, unspecified; J45.909 Unspecified asthma, uncomplicated; F17.210 Nicotine dependence, cigarettes, uncomplicated; Z88.8 Allergy status to other drugs, medicaments and biological substances

== ENCOUNTER 2018-03-03 03:29 | Emergency (ER) | payer MEDICAID ==
[~2018-03-03] VITALS: Ht 177.8 cm; Wt 72.6 kg
[~2018-03-03 03:29] MED LIST changes: +CARAFATE 1 GM TA1 GM PO; +NAPROSYN500 MG PO
[2018-03-03 04:24] LABS: ANION GAP 11 mmol/L (7-16); BUN 11 mg/dL (7-18); CALCIUM 9.6 mg/dL (8.5-10.1); CHLORIDE 100 mmol/L (98-107); CO2 28 mmol/L (21-32); CREATININE 0.9 mg/dL (0.6-1.3); GLUCOSE 96 mg/dL (70-99); POTASSIUM 3.5 mmol/L (3.5-5.1); SODIUM 139 mmol/L (136-145)
[2018-03-03 04:34] LABS: ALBUMIN 4.1 g/dL (3.4-5.0); ALKALINE PHOSPHATASE 74 U/L (46-116); LIPASE 101 U/L (73-393); NT-PRO BRAIN NAT PEPTIDE 695 pg/mL (<300); SGOT 24 U/L (15-37); SGPT 24 U/L (30-65); TOTAL PROTEIN 7.7 g/dL (6.4-8.2); TROPONIN-I LEVEL <0.06 ng/mL (<0.06)
[2018-03-03] MEDS ORDERED: ATIVAN0.5 MG PO (04:47)
[2018-03-03 04:54] LABS: ABSOLUTE BASOPHILS 0.1 thou/uL (0.0-0.2); ABSOLUTE EOSINOPHILS 0.4 thou/uL (0.0-0.7); ABSOLUTE LYMPHOCYTES 3.5 thou/uL (0.8-5.3); ABSOLUTE MONOCYTES 0.8 thou/uL (0.0-1.2); ABSOLUTE NEUTROPHILS 5.6 thou/uL (1.6-8.1); BASOPHILS 1.1 %; EOSINOPHILS 3.7 %; HEMATOCRIT 38.8 % (42.0-52.0); HEMOGLOBIN 13.4 gm/dL (14.0-18.0); LYMPHOCYTES 33.5 %; MCH 30.2 pg (26.0-34.0); MCHC 34.6 g/dL (28.0-37.0); MCV 87.4 fL (80.0-100.0); MONOCYTES 7.9 %; NUCLEATED RBCS 0 /100WBC; PLATELET COUNT* 279 thou/uL (150-400); POLYS 53.8 %; RBC 4.44 mil/uL (4.50-6.00); RDW-CV 13.7 % (10.5-14.5); WBC 10.4 thou/uL (4.0-11.0)
[2018-03-03 04:57] VITALS: BP 130/80
[2018-03-03 05:05] LABS: AMP/METHAMP POSITIVE (Negative); BARBITURATES Negative (Negative); BENZODIAZEPINES POSITIVE (Negative); COCAINE Negative (Negative); METHADONE Negative (Negative); OPIATES Negative (Negative); PCP Negative (Negative); THC POSITIVE (Negative)
--- NOTE | 2018-03-03 13:10 | EKG ---
[place] [address] ELECTROCARDIOGRAM REPORT Name: DANIELLE CAMPUZANO [id number] Admission: 03/03/18 Attend Phys: Discharge: 03/03/18 Date of : [birth year] Report #: [id number] THIS REPORT FOR: //name// [facility] ED Test Date: 2018-03-03 Test Time: 03:34:02 Pat Name: DANIELLE CAMPUZANO Department: Room: Gender: M Actuarial Trainee: CONNIE : 1990 Requested By: Isaac Ivy Order Number: [id number] MD: Jevon Serrano Measurements Intervals [place] Rate: 81 P: 23 [place]: 153 QRS: 62 QRSD: 99 T: 234 QT: 381 QTc: 443 Interpretive Statements Sinus rhythm Left atrial enlargement LVH with secondary repolarization abnormality ST depr, consider ischemia, inferior leads Anterior ST elevation, probably due to LVH Compared to ECG 02/15/2018 08:27:50 Atrial abnormality now present Possible ischemia still present ST (T wave) deviation still present Electronically Signed On 03-03-2018 13:10:18 CDT by Jevon Serrano [email or web address] <ELECTRONICALLY SIGNED> By: Jevon Serrano MD, [facility] 03/03/18 1310 0334 0334 Jevon Serrano MD, [facility] /EPI
[2018-05-25] MEDS ORDERED: MOBIC7.5 MG PO (13:15)
[2018-05-25] MEDS ORDERED: CETIRIZINE HCL5 MG PO (13:19)
== END 2018-03-03 04:58 | disposition home or self-care (01) ==
LOC: M.ERS 03:29
PROVIDERS: Emergency Medicine
DX: R07.89 Other chest pain (principal); F41.9 Anxiety disorder, unspecified; F31.9 Bipolar disorder, unspecified; J45.909 Unspecified asthma, uncomplicated; F17.210 Nicotine dependence, cigarettes, uncomplicated; Z88.8 Allergy status to other drugs, medicaments and biological substances

== ENCOUNTER 2018-03-11 01:55 | Emergency (ER) | payer MEDICAID ==
[~2018-03-11] VITALS: Ht 177.8 cm; Wt 76.0 kg
[2018-03-11 02:45] LABS: ABSOLUTE BASOPHILS 0.1 thou/uL (0.0-0.2); ABSOLUTE EOSINOPHILS 0.5 thou/uL (0.0-0.7); ABSOLUTE LYMPHOCYTES 3.1 thou/uL (0.8-5.3); BASOPHILS 1.2 %; EOSINOPHILS 4.7 %; HEMATOCRIT 38.5 % (42.0-52.0); HEMOGLOBIN 13.1 gm/dL (14.0-18.0); LYMPHOCYTES 29.1 %; MCH 30.4 pg (26.0-34.0); MCV 89.4 fL (80.0-100.0); MPV 8.3 fl. (7.2-11.1); NUCLEATED RBCS 0 /100WBC; PLATELET COUNT* 240 thou/uL (150-400); RDW-CV 13.6 % (10.5-14.5); WBC 10.7 thou/uL (4.0-11.0)
[2018-03-11 02:57] LABS: POTASSIUM 3.9 mmol/L (3.5-5.1)
[2018-03-11 02:58] LABS: CALCIUM 9.2 mg/dL (8.5-10.1); CREATININE 0.6 mg/dL (0.6-1.3); TOTAL BILIRUBIN 0.6 mg/dL (<0.1-1.0); TOTAL PROTEIN 7.2 g/dL (6.4-8.2)
[2018-03-11 03:02] LABS: URINE BILIRUBIN NEGATIVE (Negative); URINE BLOOD NEGATIVE (Negative); URINE CLARITY CLEAR; URINE COLOR YELLOW; URINE GLUCOSE-RANDOM NEGATIVE (Negative); URINE KETONES NEGATIVE (Negative); URINE LEUKOCYTES-REFLEX NEGATIVE (Negative); URINE NITRITE-REFLEX NEGATIVE (Negative); URINE PROTEIN NEGATIVE (Negative); URINE SPECIFIC GRAVITY <= 1.005 (1.005-1.030); URINE UROBILINOGEN 0.2 E.U./dl (0.2-1.0)
[2018-03-11 03:11] LABS: AMP/METHAMP Negative (Negative); BARBITURATES Negative (Negative); BENZODIAZEPINES Negative (Negative); COCAINE Negative (Negative); METHADONE Negative (Negative); OPIATES Negative (Negative); PCP Negative (Negative); THC Negative (Negative)
[2018-03-11] MEDS ORDERED: CLONIDINE0.1 PO (03:27)
[2018-03-11] MEDS ORDERED: NAPROSYN500 MG PO (03:27)
[2018-03-11 03:40] VITALS: BP 131/75
--- NOTE | 2018-03-11 14:04 | EKG ---
[place] [address] ELECTROCARDIOGRAM REPORT Name: DANIELLE CAMPUZANO Room: [facility]#: [id number] Admission: 03/11/18 Attend Phys: Discharge: 03/11/18 Date of : [birth year] Report #: [id number] THIS REPORT FOR: //name// [facility] ED Test Date: 2018-03-11 Test Time: 01:59:18 Pat Name: DANIELLE CAMPUZANO Department: Room: Gender: M Data Specialist: CONNIE : 1990 Requested By: Clarisa Mock Order Number: [id number] MD: Chivo Desai Measurements Intervals [place] Rate: 65 P: 17 [place]: 149 QRS: 63 QRSD: 103 T: 241 QT: 392 QTc: 408 Interpretive Statements Sinus rhythm LVH with secondary repol abnormality Compared to ECG 03/03/2018 03:34:02 No significant changes noted Electronically Signed On 03-11-2018 14:04:22 CDT by Chivo Desai [email or web address] <ELECTRONICALLY SIGNED> By: Chivo Desai MD, [facility] 03/11/18 1404 0159 0159 Chivo Desai MD, [facility]ACC /EPI
[2018-05-25] MEDS ORDERED: MOBIC7.5 MG PO (13:15)
[2018-05-25] MEDS ORDERED: CETIRIZINE HCL5 MG PO (13:19)
== END 2018-03-11 03:42 | disposition home or self-care (01) ==
LOC: M.ERS 01:55
PROVIDERS: Personal Emergency Response Attendant
DX: R07.89 Other chest pain (principal); J45.909 Unspecified asthma, uncomplicated; F31.9 Bipolar disorder, unspecified; F41.9 Anxiety disorder, unspecified; F17.210 Nicotine dependence, cigarettes, uncomplicated; Z95.0 Presence of cardiac pacemaker; Z88.8 Allergy status to other drugs, medicaments and biological substances

== ENCOUNTER 2018-03-25 07:45 | Emergency (ER) | payer MEDICAID ==
[~2018-03-25] VITALS: Ht 177.8 cm; Wt 74.8 kg
[2018-03-25 08:13] LABS: ABSOLUTE BASOPHILS 0.1 thou/uL (0.0-0.2); ABSOLUTE EOSINOPHILS 0.2 thou/uL (0.0-0.7); ABSOLUTE LYMPHOCYTES 3.1 thou/uL (0.8-5.3); ABSOLUTE MONOCYTES 0.6 thou/uL (0.0-1.2); ABSOLUTE NEUTROPHILS 4.6 thou/uL (1.6-8.1); BASOPHILS 0.8 %; EOSINOPHILS 2.7 %; HEMATOCRIT 40.8 % (42.0-52.0); HEMOGLOBIN 13.8 gm/dL (14.0-18.0); LYMPHOCYTES 36.1 %; MCH 29.7 pg (26.0-34.0); MCHC 33.8 g/dL (28.0-37.0); MONOCYTES 6.8 %; MPV 8.4 fl. (7.2-11.1); NUCLEATED RBCS 0 /100WBC; PLATELET COUNT* 239 thou/uL (150-400); POLYS 53.6 %; RBC 4.63 mil/uL (4.50-6.00); RDW-CV 13.2 % (10.5-14.5); WBC 8.6 thou/uL (4.0-11.0)
[2018-03-25 08:29] LABS: ANION GAP 8 mmol/L (7-16); BUN 16 mg/dL (7-18); CALCIUM 9.3 mg/dL (8.5-10.1); CHLORIDE 102 mmol/L (98-107); CO2 29 mmol/L (21-32); CREATININE 0.8 mg/dL (0.6-1.3); GLUCOSE 113 mg/dL (70-99); POTASSIUM 3.8 mmol/L (3.5-5.1); SODIUM 139 mmol/L (136-145)
[2018-03-25 08:39] LABS: ALBUMIN 3.9 g/dL (3.4-5.0); ALKALINE PHOSPHATASE 82 U/L (46-116); LIPASE 109 U/L (73-393); MAGNESIUM 2.1 mg/dL (1.8-2.4); NT-PRO BRAIN NAT PEPTIDE 274 pg/mL (<300); SGOT 29 U/L (15-37); SGPT 37 U/L (30-65); TOTAL BILIRUBIN 0.5 mg/dL (<0.1-1.0); TOTAL PROTEIN 7.4 g/dL (6.4-8.2); TROPONIN-I LEVEL <0.06 ng/mL (<0.06)
[2018-03-25 09:16] LABS: INR 1.2; PROTIME 11.2 Seconds (9.20-11.50)
[2018-03-25 10:54] VITALS: BP 134/82
--- NOTE | 2018-03-25 13:50 | EKG ---
[place] [address] ELECTROCARDIOGRAM REPORT Name: DANIELLE CAMPUZANO Room: [facility]#: [id number] Admission: 03/25/18 Attend Phys: Discharge: 03/25/18 Date of : [birth year] Report #: [id number] THIS REPORT FOR: //name// [facility] ED Test Date: 2018-03-25 Test Time: 07:48:24 Pat Name: DANIELLE CAMPUZANO Department: Room: Gender: M Assembler Metal Building: GLORIA : 1990 Requested By: Uri Beebe Order Number: [id number] MD: Danielle Dee Measurements Intervals [place] Rate: 80 P: 26 [place]: 149 QRS: 66 QRSD: 105 T: 256 QT: 358 QTc: 413 Interpretive Statements Sinus rhythm Probable left atrial enlargement LVH with secondary repolarization abnormality ST depr, consider ischemia, inferior leads Compared to ECG 03/11/2018 01:59:18 no change Electronically Signed On 03-25-2018 13:49:58 CDT by Danielle Dee [email or web address] <ELECTRONICALLY SIGNED> By: Danielle Dee MD, [facility] 03/25/18 1349 Danielle Dee MD, [facility] /EPI
--- NOTE | 2018-03-25 13:56 | EKG ---
[place] [address] ELECTROCARDIOGRAM REPORT Name: DANIELLE CAMPUZANO Room: [facility]#: [id number] Admission: 03/25/18 Attend Phys: Discharge: 03/25/18 Date of : [birth year] Report #: [id number] THIS REPORT FOR: //name// [facility] ED Test Date: 2018-03-25 Test Time: 09:44:39 Pat Name: DANIELLE CAMPUZANO Department: Room: Gender: M Ortho Nurse: Jo-Ann YOUNGER : 1990 Requested By: Uri Beebe Order Number: [id number] MD: Danielle Dee Measurements Intervals [place] Rate: 60 P: [place]: 173 QRS: 65 QRSD: 101 T: 252 QT: 422 QTc: 422 Interpretive Statements Atrial-paced rhythm Repol abnrm, global ischemia, diffuse leads ST elevation, consider repolarization LVH Electronically Signed On 03-25-2018 13:56:23 CDT by Danielle Dee [email or web address] <ELECTRONICALLY SIGNED> By: Danielle Dee MD, [facility] 03/25/18 1356 0944 0944 Danielle Dee MD, [facility] /EPI
[2018-05-25] MEDS ORDERED: MOBIC7.5 MG PO (13:15)
[2018-05-25] MEDS ORDERED: CETIRIZINE HCL5 MG PO (13:19)
== END 2018-03-25 10:55 | disposition home or self-care (01) ==
LOC: M.ERS 07:45
PROVIDERS: Emergency Medicine Emergency Medical Services
DX: R07.9 Chest pain, unspecified (principal); F41.9 Anxiety disorder, unspecified; J45.909 Unspecified asthma, uncomplicated; F17.210 Nicotine dependence, cigarettes, uncomplicated; Z88.8 Allergy status to other drugs, medicaments and biological substances

== ENCOUNTER 2018-04-04 05:13 | Emergency (ER) | payer OTHER ==
[~2018-04-04] VITALS: Ht 177.8 cm; Wt 72.6 kg
[2018-04-04 06:15] VITALS: BP 142/83
[2018-04-04] MEDS ORDERED: CLEOCIN HCL150 MG PO (11:05)
[2018-05-25] MEDS ORDERED: MOBIC7.5 MG PO (13:15)
[2018-05-25] MEDS ORDERED: CETIRIZINE HCL5 MG PO (13:19)
== END 2018-04-04 06:15 | disposition home or self-care (01) ==
LOC: M.ERS 05:13
DX: R51 Headache (principal); F31.9 Bipolar disorder, unspecified; J45.909 Unspecified asthma, uncomplicated; F17.210 Nicotine dependence, cigarettes, uncomplicated

== ENCOUNTER 2018-04-04 10:43 | Emergency (ER) | payer OTHER ==
[~2018-04-04] VITALS: Ht 177.8 cm; Wt 72.6 kg
[2018-04-04] MEDS ORDERED: CLEOCIN HCL150 MG PO (11:05)
[2018-04-04 11:15] VITALS: BP 144/85
[2018-05-25] MEDS ORDERED: MOBIC7.5 MG PO (13:15)
[2018-05-25] MEDS ORDERED: CETIRIZINE HCL5 MG PO (13:19)
== END 2018-04-04 11:16 | disposition home or self-care (01) ==
LOC: M.ERS 10:43
DX: K08.89 Other specified disorders of teeth and supporting structures (principal); F31.9 Bipolar disorder, unspecified; J45.909 Unspecified asthma, uncomplicated; F17.210 Nicotine dependence, cigarettes, uncomplicated

== ENCOUNTER 2018-04-16 17:03 | Emergency (ER) | payer MEDICAID ==
[~2018-04-16] VITALS: Ht 177.8 cm; Wt 72.6 kg
[2018-04-16 17:49] LABS: URINE BILIRUBIN NEGATIVE (Negative); URINE BLOOD NEGATIVE (Negative); URINE CLARITY CLEAR; URINE COLOR YELLOW; URINE GLUCOSE-RANDOM NEGATIVE (Negative); URINE KETONES NEGATIVE (Negative); URINE LEUKOCYTES NEGATIVE (Negative); URINE NITRITE NEGATIVE (Negative); URINE PROTEIN NEGATIVE (Negative); URINE SPECIFIC GRAVITY <= 1.005 (1.005-1.030); URINE UROBILINOGEN 0.2 E.U./dl (0.2-1.0)
[2018-04-16 17:57] LABS: AMP/METHAMP Negative (Negative); BARBITURATES Negative (Negative); BENZODIAZEPINES Negative (Negative); COCAINE Negative (Negative); METHADONE Negative (Negative); OPIATES Negative (Negative); PCP Negative (Negative); THC Negative (Negative)
[2018-04-16 18:02] LABS: HEMATOCRIT 42.8 % (42.0-52.0); HEMOGLOBIN 14.6 gm/dL (14.0-18.0); MCH 29.9 pg (26.0-34.0); MCHC 34.2 g/dL (28.0-37.0); MCV 87.7 fL (80.0-100.0); MPV 8.8 fl. (7.2-11.1); RBC 4.88 mil/uL (4.50-6.00); RDW-CV 13.9 % (10.5-14.5); WBC 7.3 thou/uL (4.0-11.0)
[2018-04-16 18:10] LABS: CALCIUM 9.3 mg/dL (8.5-10.1); CREATININE 0.8 mg/dL (0.6-1.3)
[2018-04-16 18:14] LABS: ALBUMIN 4.3 g/dL (3.4-5.0); TOTAL BILIRUBIN 0.4 mg/dL (<0.1-1.0); TOTAL PROTEIN 7.8 g/dL (6.4-8.2)
[2018-04-16 18:18] LABS: SALICYLATE 3.3 mg/dL (2.8-20.0)
[2018-04-16 18:19] LABS: ACETAMINOPHEN < 2 ug/mL (10-30); ALCOHOL < 10 mg/dL (<10)
--- NOTE | 2018-04-17 12:40 | EKG ---
[place] [address] ELECTROCARDIOGRAM REPORT Name: DANIELLE CAMPUZANO Room: [facility]#: [id number] Admission: 04/16/18 Attend Phys: Discharge: Date of : [birth year] Report #: [id number] THIS REPORT FOR: //name// [facility] ED Test Date: 2018-04-16 Test Time: 17:48:12 Pat Name: DANIELLE CAMPUZANO Department: Room: Gender: M Occupational Therapist Rehab Manager: : 1990 Requested By: Clarisa Mock Order Number: [id number] MD: Jaziel Villa Measurements Intervals [place] Rate: 69 P: 32 [place]: 147 QRS: 68 QRSD: 102 T: 241 QT: 389 QTc: 417 Interpretive Statements Sinus rhythm Probable LVH with secondary repol abnrm Repol abnrm, global ischemia, diffuse leads Anterior ST elevation, probably due to LVH Compared to ECG 03/25/2018 09:44:39 Atrial-paced complex(es) or rhythm no longer present Ventricular-paced complex(es) or rhythm no longer present Possible ischemia still present ST (T wave) deviation still present Electronically Signed On 04-17-2018 12:40:45 CDT by Jaziel Villa [email or web address] <ELECTRONICALLY SIGNED> By: Jaziel Villa MD, [facility] 04/17/18 1240 1748 1748 Jaziel Villa MD, [facility] /EPI
[2018-04-20 14:55] LABS: ABSOLUTE BASOPHILS 0.1 thou/uL (0.0-0.2); ABSOLUTE EOSINOPHILS 0.2 thou/uL (0.0-0.7); ABSOLUTE LYMPHOCYTES 2.3 thou/uL (0.8-5.3); ABSOLUTE MONOCYTES 0.6 thou/uL (0.0-1.2); ABSOLUTE NEUTROPHILS 4.1 thou/uL (1.6-8.1); BASOPHILS 0.8 %; EOSINOPHILS 2.8 %; HEMATOCRIT 43.1 % (42.0-52.0); HEMOGLOBIN 14.8 gm/dL (14.0-18.0); LYMPHOCYTES 32.2 %; MCH 29.8 pg (26.0-34.0); MCHC 34.2 g/dL (28.0-37.0); MCV 87.1 fL (80.0-100.0); MONOCYTES 7.7 %; MPV 8.3 fl. (7.2-11.1); NUCLEATED RBCS 0 /100WBC; PLATELET COUNT* 237 thou/uL (150-400); POLYS 56.5 %; RBC 4.95 mil/uL (4.50-6.00); RDW-CV 13.5 % (10.5-14.5); WBC 7.3 thou/uL (4.0-11.0)
[2018-04-20 15:03] LABS: CALCIUM 9.3 mg/dL (8.5-10.1); CREATININE 0.8 mg/dL (0.6-1.3); POTASSIUM 4.1 mmol/L (3.5-5.1)
[2018-04-20 15:08] LABS: ALBUMIN 4.3 g/dL (3.4-5.0); TOTAL BILIRUBIN 0.7 mg/dL (<0.1-1.0); TOTAL PROTEIN 7.7 g/dL (6.4-8.2)
[2018-04-20 15:32] LABS: SALICYLATE < 2.8 mg/dL (2.8-20.0)
[2018-04-20 15:34] LABS: ACETAMINOPHEN < 2 ug/mL (10-30); ALCOHOL < 10 mg/dL (<10)
[2018-04-21 16:35] VITALS: BP 133/87
[2018-05-25] MEDS ORDERED: MOBIC7.5 MG PO (13:15)
[2018-05-25] MEDS ORDERED: CETIRIZINE HCL5 MG PO (13:19)
== END 2018-04-21 16:35 ==
LOC: M.ERS 17:03
PROVIDERS: Emergency Medicine; Personal Emergency Response Attendant
DX: F98.9 Unspecified behavioral and emotional disorders with onset usually occurring in childhood and adolescence (principal); F19.10 Other psychoactive substance abuse, uncomplicated; F41.9 Anxiety disorder, unspecified; F31.9 Bipolar disorder, unspecified; J45.909 Unspecified asthma, uncomplicated; F17.210 Nicotine dependence, cigarettes, uncomplicated; Z95.5 Presence of coronary angioplasty implant and graft

== ENCOUNTER 2018-05-05 15:39 | Emergency (ER) | payer MEDICAID ==
[~2018-05-05] VITALS: Ht 177.8 cm; Wt 72.6 kg
[2018-05-05] MEDS ORDERED: PROZAC20 MG PO (15:50)
[2018-05-05] MEDS ORDERED: RISPERDAL 3 MG T3 M1 PO (16:01)
[2018-05-05] MEDS ORDERED: BENZTROPINE MES1 MG PO (16:01)
[2018-05-05] MEDS ORDERED: MELATONIN3 MG PO (16:01)
[2018-05-05] MEDS ORDERED: PEPCID20 MG PO (16:01)
[2018-05-05] MEDS ORDERED: COLACE100 MG PO (16:01)
[2018-05-05] MEDS ORDERED: HYDROXYZINE HCL25 M1 PO (16:02)
[2018-05-05] MEDS ORDERED: VITAMIN D1000 UNIT PO (16:03)
[2018-05-05] MEDS ORDERED: ACCUNEB SO1.25 MG/1 INH (16:03)
[2018-05-05 16:31] VITALS: BP 172/98
--- NOTE | 2018-05-06 09:49 | EKG ---
[place] [address] ELECTROCARDIOGRAM REPORT Name: DANIELLE CAMPUZANO Room: [facility]#: [id number] Admission: 05/05/18 Attend Phys: Discharge: 05/05/18 Date of : [birth year] Report #: [id number] THIS REPORT FOR: //name// [facility] ED Test Date: 2018-05-05 Test Time: 15:41:11 Pat Name: DANIELLE CAMPUZANO Department: Room: Gender: M Lockstitch Back Maker: Jo-Ann SALAS : 1990 Requested By: Levy Menezes Order Number: [id number] MD: Danielle Dee Measurements Intervals [place] Rate: 80 P: 37 [place]: 143 QRS: 67 QRSD: 101 T: 246 QT: 385 QTc: 445 Interpretive Statements Sinus rhythm Probable LVH with secondary repol abnrm Repol abnrm, global ischemia, diffuse leads Anterior ST elevation, probably due to LVH Compared to ECG 04/16/2018 17:48:12 No significant changes Electronically Signed On 05-06-2018 9:49:30 CDT by Danielle Dee [email or web address] <ELECTRONICALLY SIGNED> By: Danielle Dee MD, [facility] 05/06/18 0949 1541 1541 Danielle Dee MD, [facility] /EPI
[2018-05-25] MEDS ORDERED: MOBIC7.5 MG PO (13:15)
[2018-05-25] MEDS ORDERED: CETIRIZINE HCL5 MG PO (13:19)
== END 2018-05-05 16:32 | disposition home or self-care (01) ==
LOC: M.ERS 15:39
DX: R07.89 Other chest pain (principal); F41.9 Anxiety disorder, unspecified; F31.9 Bipolar disorder, unspecified; J45.909 Unspecified asthma, uncomplicated; Z95.0 Presence of cardiac pacemaker; Z95.5 Presence of coronary angioplasty implant and graft; F17.210 Nicotine dependence, cigarettes, uncomplicated

== ENCOUNTER 2018-05-10 09:18 | Emergency (ER) | payer OTHER ==
[~2018-05-10] VITALS: Ht 177.8 cm; Wt 72.6 kg
[~2018-05-10 09:18] MED LIST changes: +ACCUNEB SO1.25 MG/1 INH; +BENZTROPINE MES1 MG PO; +COLACE100 MG PO; +HYDROXYZINE HCL25 M1 PO; +MELATONIN3 MG PO; +PROZAC20 MG PO; +RISPERDAL 3 MG T3 M1 PO; +VITAMIN D1000 UNIT PO
[2018-05-10 09:45] VITALS: BP 141/81
[2018-05-25] MEDS ORDERED: MOBIC7.5 MG PO (13:15)
[2018-05-25] MEDS ORDERED: CETIRIZINE HCL5 MG PO (13:19)
== END 2018-05-10 09:51 | disposition home or self-care (01) ==
LOC: M.ERS 09:18
DX: Z71.1 Person with feared health complaint in whom no diagnosis is made (principal); J45.909 Unspecified asthma, uncomplicated; F31.9 Bipolar disorder, unspecified; F41.9 Anxiety disorder, unspecified; F17.210 Nicotine dependence, cigarettes, uncomplicated; Z95.5 Presence of coronary angioplasty implant and graft

== ENCOUNTER 2019-01-23 00:57 | Emergency (ER) | payer OTHER, MEDICAID ==
[~2019-01-23] VITALS: Ht 172.7 cm; Wt 70.3 kg
[~2019-01-23 00:57] MED LIST changes: +CETIRIZINE HCL5 MG PO; +MOBIC7.5 MG PO
[2019-01-23] MEDS ORDERED: CLONAZEPAM 1 MG1 M1 PO (01:10)
[2019-01-23] MEDS ORDERED: NEURONTIN 300300 M1 (01:10)
[2019-01-23 01:28] LABS: URINE BILIRUBIN NEGATIVE (Negative); URINE BLOOD NEGATIVE (Negative); URINE CLARITY CLEAR; URINE COLOR YELLOW; URINE GLUCOSE-RANDOM NEGATIVE (Negative); URINE KETONES NEGATIVE (Negative); URINE LEUKOCYTES NEGATIVE (Negative); URINE NITRITE NEGATIVE (Negative); URINE PROTEIN NEGATIVE (Negative); URINE SPECIFIC GRAVITY <= 1.005 (1.005-1.030); URINE UROBILINOGEN 0.2 E.U./dl (0.2-1.0)
[2019-01-23 01:34] LABS: AMP/METHAMP POSITIVE (Negative); BARBITURATES Negative (Negative); BENZODIAZEPINES Negative (Negative); COCAINE Negative (Negative); METHADONE Negative (Negative); OPIATES Negative (Negative); PCP Negative (Negative); THC Negative (Negative)
[2019-01-23 01:53] LABS: HEMATOCRIT 44.9 % (42.0-52.0); HEMOGLOBIN 15.7 gm/dL (14.0-18.0); MCH 30.8 pg (26.0-34.0); MCHC 34.9 g/dL (28.0-37.0); RBC 5.1 mil/uL (4.50-6.00); RDW-CV 13.4 % (10.5-14.5); WBC 8.1 thou/uL (4.0-11.0)
[2019-01-23 01:59] LABS: ACETAMINOPHEN < 2 ug/mL (10-30); ALCOHOL < 10 mg/dL (<10); SALICYLATE < 2.8 mg/dL (2.8-20.0)
[2019-01-23 02:01] LABS: ALBUMIN 4.6 g/dL (3.4-5.0); CALCIUM 9.5 mg/dL (8.5-10.1); CREATININE 0.9 mg/dL (0.6-1.3); POTASSIUM 3.5 mmol/L (3.5-5.1); TOTAL BILIRUBIN 1.1 mg/dL (<0.1-1.0)
[2019-01-23] MEDS ORDERED: TRAZODONE HCL100 MG PO (03:47)
[2019-01-23 03:52] VITALS: BP 138/85
[2019-01-23] MEDS ORDERED: KEFLEX500 M1 PO (20:23)
== END 2019-01-23 03:52 | disposition home or self-care (01) ==
LOC: M.ERS 00:57
PROVIDERS: Personal Emergency Response Attendant
DX: F19.10 Other psychoactive substance abuse, uncomplicated (principal); F31.9 Bipolar disorder, unspecified; F41.9 Anxiety disorder, unspecified; J45.909 Unspecified asthma, uncomplicated; Z87.891 Personal history of nicotine dependence; Z95.0 Presence of cardiac pacemaker

== ENCOUNTER 2019-12-24 19:21 | Emergency (ER) | payer OTHER ==
[~2019-12-24] VITALS: Ht 177.8 cm; Wt 82.6 kg
[~2019-12-24 19:21] MED LIST changes: +CLONAZEPAM 1 MG1 M1 PO; +NEURONTIN 300300 M1; +TRAZODONE HCL100 MG PO
[2019-12-24] MEDS ORDERED: SUBOXONE 8 MG-1 EAC3 SUBLING (19:33)
[2019-12-24 20:02] LABS: ABSOLUTE BASOPHILS 0.1 thou/uL (0.0-0.2); ABSOLUTE EOSINOPHILS 0.1 thou/uL (0.0-0.7); ABSOLUTE LYMPHOCYTES 2.3 thou/uL (0.8-5.3); ABSOLUTE MONOCYTES 0.8 thou/uL (0.0-1.2); ABSOLUTE NEUTROPHILS 5.7 thou/uL (1.6-8.1); BASOPHILS 0.9 %; EOSINOPHILS 1.6 %; HEMATOCRIT 41.1 % (42.0-52.0); HEMOGLOBIN 14.6 gm/dL (14.0-18.0); LYMPHOCYTES 25.8 %; MCH 30.7 pg (26.0-34.0); MCHC 35.5 g/dL (28.0-37.0); MCV 86.3 fL (80.0-100.0); MONOCYTES 8.9 %; MPV 7.7 fl. (7.2-11.1); NUCLEATED RBCS 0 /100WBC; PLATELET COUNT* 248 thou/uL (150-400); POLYS 62.8 %; RBC 4.76 mil/uL (4.50-6.00)
[2019-12-24 20:11] LABS: CALCIUM 8.5 mg/dL (8.5-10.1); CREATININE 0.9 mg/dL (0.6-1.3); POTASSIUM 3.5 mmol/L (3.5-5.1)
[2019-12-24 20:15] LABS: ALBUMIN 4.5 g/dL (3.4-5.0); TOTAL BILIRUBIN 0.6 mg/dL (<0.1-1.0); TOTAL PROTEIN 7.8 g/dL (6.4-8.2)
[2019-12-24 20:38] VITALS: BP 138/71
--- NOTE | 2019-12-26 10:21 | EKG ---
[place] [address] ELECTROCARDIOGRAM REPORT Name: LEIGHTON CAMPUZANO Room: [facility]#: [id number] Admission: 12/24/19 Attend Phys: Discharge: 12/24/19 Date of : [birth year] Date of Service: 12/24/191924 Report #: [id number] THIS REPORT FOR: //name// [facility] ED Test Date: 2019-12-24 Test Time: 19:25:48 Pat Name: LEIGHTON CAMPUZANO Department: Room: Gender: Swimmer: : 1990 Requested By: Levy Menezes Order Number: [id number] MD: Leighton Dee Measurements Intervals [place] Rate: 60 P: [place]: 161 QRS: 58 QRSD: 106 T: 226 QT: 422 QTc: 422 Interpretive Statements sinus rhythm Repol abnrm, global ischemia, diffuse leads Compared to ECG 05/05/2018 15:41:11 Left ventricular hypertrophy no longer present Possible ischemia still present Electronically Signed On 12-26-2019 10:19:57 CDT by Leighton Dee [email or web address] <ELECTRONICALLY SIGNED> By: Leighton Dee MD, FACC 12/26/19 1019 1925 Leighton Dee MD, [facility] /EPI
== END 2019-12-24 20:38 | disposition home or self-care (01) ==
LOC: M.ERS 19:21
PROVIDERS: Family Medicine
DX: R07.89 Other chest pain (principal); J45.909 Unspecified asthma, uncomplicated; Z87.891 Personal history of nicotine dependence

== ENCOUNTER 2020-01-07 07:54 | Emergency (ER) | payer OTHER ==
[~2020-01-07] VITALS: Ht 177.8 cm; Wt 82.6 kg
[~2020-01-07 07:54] MED LIST changes: +SUBOXONE 8 MG-1 EAC3 SUBLING
[2020-01-07] MEDS ORDERED: FLOMAX0.4 MG PO (08:05)
[2020-01-07 08:46] LABS: ABSOLUTE EOSINOPHILS 0.1 thou/uL (0.0-0.7); ABSOLUTE LYMPHOCYTES 2.4 thou/uL (0.8-5.3); ABSOLUTE MONOCYTES 0.6 thou/uL (0.0-1.2); ABSOLUTE NEUTROPHILS 5.3 thou/uL (1.6-8.1); BASOPHILS 0.4 %; EOSINOPHILS 1.5 %; HEMOGLOBIN 15.8 gm/dL (14.0-18.0); LYMPHOCYTES 27.9 %; MCHC 35.9 g/dL (28.0-37.0); MCV 86.1 fL (80.0-100.0); MONOCYTES 7.6 %; MPV 8.1 fl. (7.2-11.1); NUCLEATED RBCS 0 /100WBC; PLATELET COUNT* 229 thou/uL (150-400); POLYS 62.6 %; RBC 5.11 mil/uL (4.50-6.00); RDW-CV 13.2 % (10.5-14.5); WBC 8.4 thou/uL (4.0-11.0)
[2020-01-07 08:55] LABS: CALCIUM 9.4 mg/dL (8.5-10.1); CREATININE 1.1 mg/dL (0.6-1.3)
[2020-01-07 08:56] LABS: APTT 28.2 Seconds (25.0-31.3); PROTIME 10.1 Seconds (9.20-11.50)
[2020-01-07 09:06] LABS: TOTAL BILIRUBIN 0.9 mg/dL (<0.1-1.0); TOTAL PROTEIN 8.9 g/dL (6.4-8.2)
[2020-01-07 09:36] LABS: URINE BILIRUBIN NEGATIVE (Negative); URINE BLOOD NEGATIVE (Negative); URINE CLARITY CLEAR; URINE COLOR YELLOW; URINE GLUCOSE-RANDOM NEGATIVE (Negative); URINE KETONES NEGATIVE (Negative); URINE LEUKOCYTES-REFLEX NEGATIVE (Negative); URINE NITRITE-REFLEX NEGATIVE (Negative); URINE PROTEIN NEGATIVE (Negative); URINE UROBILINOGEN 0.2 E.U./dl (0.2-1.0)
[2020-01-07 09:44] LABS: AMP/METHAMP POSITIVE (Negative); BARBITURATES Negative (Negative); BENZODIAZEPINES Negative (Negative); COCAINE Negative (Negative); METHADONE Negative (Negative); OPIATES Negative (Negative); PCP Negative (Negative); THC Negative (Negative)
[2020-01-07 11:21] VITALS: BP 100/54
--- NOTE | 2020-01-08 10:37 | EKG ---
[place] [address] ELECTROCARDIOGRAM REPORT Name: LEIGHTON CAMPUZANO Room: [facility]#: [id number] Admission: 01/07/20 Attend Phys: Discharge: 01/07/20 Date of : [birth year] Date of Service: 01/07/20 0756 Report #: [id number] THIS REPORT FOR: //name// [facility] ED Test Date: 2020-01-07 Test Time: 07:56:16 Pat Name: LEIGHTON CAMPUZANO Department: Room: Gender: Assessment Counselor: : 1990 Requested By: Clarisa Mock Order Number: [id number] MD: Leighton Dee Measurements Intervals [place] Rate: 76 P: 49 [place]: 149 QRS: 72 QRSD: 103 T: 242 QT: 425 QTc: 478 Interpretive Statements Sinus rhythm Probable LVH with secondary repol abnrm Borderline prolonged QT interval Compared to ECG 12/24/2019 19:25:48 Possible ischemia still present Electronically Signed On 01-08-2020 10:35:37 CDT by Leighton Dee [email or web address] <ELECTRONICALLY SIGNED> By: Leighton Dee MD, [facility]AC 01/08/20 1035 0756 0756 Leighton Dee MD, [facility] /EPI
== END 2020-01-07 11:15 | disposition home or self-care (01) ==
LOC: M.ERS 07:54
PROVIDERS: Personal Emergency Response Attendant
DX: I20.8 Other forms of angina pectoris (principal); F15.10 Other stimulant abuse, uncomplicated; J45.909 Unspecified asthma, uncomplicated; Z87.891 Personal history of nicotine dependence; Z95.5 Presence of coronary angioplasty implant and graft; Z79.899 Other long term (current) drug therapy

== ENCOUNTER 2020-06-25 21:43 | Emergency (ER) | payer MEDICAID ==
[~2020-06-25] VITALS: Ht 177.8 cm; Wt 81.7 kg
[~2020-06-25 21:43] MED LIST changes: +FLOMAX0.4 MG PO
[2020-06-25 22:16] LABS: NUCLEATED RBCS 0 /100WBC
[2020-06-25 22:23] LABS: CALCIUM 9.7 mg/dL (8.5-10.1); CREATININE 1.5 mg/dL (0.6-1.3); POTASSIUM 3.8 mmol/L (3.5-5.1)
[2020-06-25 22:26] LABS: RBC ND mil/uL (4.50-6.00); WBC ND thou/uL (4.0-11.0)
[2020-06-25 22:27] LABS: ALBUMIN 5.2 g/dL (3.4-5.0); HEMATOCRIT ND % (42.0-52.0); HEMOGLOBIN ND gm/dL (14.0-18.0); TOTAL BILIRUBIN 1.6 mg/dL (<0.1-1.0); TOTAL PROTEIN 9.2 g/dL (6.4-8.2)
[2020-06-25 22:29] LABS: MCH ND pg (26.0-34.0); MCHC ND g/dL (28.0-37.0)
[2020-06-25 22:30] LABS: PLATELET COUNT* ND thou/uL (150-400); RDW-CV ND % (10.5-14.5)
[2020-06-25 22:31] LABS: MPV ND fl. (7.2-11.1)
[2020-06-25 22:32] LABS: MCV ND fL (80.0-100.0)
[2020-06-25 22:37] LABS: ACETAMINOPHEN < 2 ug/mL (10-30); ALCOHOL < 10 mg/dL (<10); SALICYLATE < 2.8 mg/dL (2.8-20.0)
[2020-06-25 22:39] LABS: HEMATOCRIT 44.9 % (42.0-52.0); HEMOGLOBIN 15.9 gm/dL (14.0-18.0); MCH 30.7 pg (26.0-34.0); MCHC 35.4 g/dL (28.0-37.0); MCV 86.7 fL (80.0-100.0); NUCLEATED RBCS 0 /100WBC; PLATELET COUNT* 291 thou/uL (150-400); RBC 5.18 mil/uL (4.50-6.00); RDW-CV 13.7 % (10.5-14.5); WBC 21.4 thou/uL (4.0-11.0)
[2020-06-25 23:09] LABS: ABSOLUTE LYMPHOCYTES 2.8 thou/uL (0.8-5.3); ABSOLUTE MONOCYTES 1.3 thou/uL (0.0-1.2); ABSOLUTE NEUTROPHILS 17.3 thou/uL (1.6-8.1)
[2020-06-25 23:10] LABS: PLATELET ESTIMATE ADEQUATE
[2020-06-26 01:18] LABS: AMP/METHAMP POSITIVE (Negative); BARBITURATES Negative (Negative); BENZODIAZEPINES Negative (Negative); COCAINE Negative (Negative); METHADONE Negative (Negative); OPIATES Negative (Negative); PCP Negative (Negative); THC Negative (Negative)
[2020-06-26 01:29] LABS: URINE BILIRUBIN NEGATIVE (Negative); URINE BLOOD NEGATIVE (Negative); URINE CLARITY CLEAR; URINE COLOR YELLOW; URINE GLUCOSE-RANDOM NEGATIVE (Negative); URINE KETONES 1+ (Negative); URINE LEUKOCYTES-REFLEX NEGATIVE (Negative); URINE NITRITE-REFLEX NEGATIVE (Negative); URINE PROTEIN 1+ (Negative); URINE SPECIFIC GRAVITY >= 1.030 (1.005-1.030); URINE UROBILINOGEN 0.2 E.U./dl (0.2-1.0)
[2020-06-26 14:29] LABS: CALCIUM 8.9 mg/dL (8.5-10.1); CREATININE 1.1 mg/dL (0.6-1.3); POTASSIUM 4.3 mmol/L (3.5-5.1)
[2020-06-29 10:33] LABS: ABSOLUTE BASOPHILS 0.1 thou/uL (0.0-0.2); ABSOLUTE EOSINOPHILS 0.3 thou/uL (0.0-0.7); ABSOLUTE MONOCYTES 0.9 thou/uL (0.0-1.2); ABSOLUTE NEUTROPHILS 7.2 thou/uL (1.6-8.1); BASOPHILS 0.9 %; EOSINOPHILS 2.5 %; HEMOGLOBIN 15.1 gm/dL (14.0-18.0); LYMPHOCYTES 31.7 %; MCH 30.7 pg (26.0-34.0); MCHC 35.1 g/dL (28.0-37.0); MCV 87.4 fL (80.0-100.0); MONOCYTES 7.1 %; MPV 8.2 fl. (7.2-11.1); NUCLEATED RBCS 0 /100WBC; PLATELET COUNT* 275 thou/uL (150-400); POLYS 57.8 %; RBC 4.92 mil/uL (4.50-6.00); RDW-CV 13.2 % (10.5-14.5); WBC 12.5 thou/uL (4.0-11.0)
[2020-06-29] MEDS ORDERED: KEFLEX500 M1 PO (10:36)
[2020-06-29 14:21] VITALS: BP 138/66
== END 2020-06-29 14:21 | disposition short-term general hospital (02) ==
LOC: M.ERS 21:43
PROVIDERS: Emergency Medicine; Emergency Medicine Emergency Medical Services
DX: F29 Unspecified psychosis not due to a substance or known physiological condition (principal); F15.10 Other stimulant abuse, uncomplicated; F91.9 Conduct disorder, unspecified; J45.909 Unspecified asthma, uncomplicated; F41.9 Anxiety disorder, unspecified; F31.9 Bipolar disorder, unspecified; Z20.828 Contact with and (suspected) exposure to other viral communicable diseases; Z95.5 Presence of coronary angioplasty implant and graft; Z95.0 Presence of cardiac pacemaker; Z87.891 Personal history of nicotine dependence

== ENCOUNTER 2020-07-21 00:50 | Emergency (ER) | payer MEDICAID ==
[~2020-07-21] VITALS: Ht 177.8 cm; Wt 113.4 kg
[2020-07-21 01:33] LABS: ABSOLUTE BASOPHILS 0.1 thou/uL (0.0-0.2); ABSOLUTE EOSINOPHILS 0.2 thou/uL (0.0-0.7); ABSOLUTE LYMPHOCYTES 2.4 thou/uL (0.8-5.3); BASOPHILS 0.9 %; EOSINOPHILS 1.2 %; HEMATOCRIT 43.7 % (42.0-52.0); HEMOGLOBIN 15.4 gm/dL (14.0-18.0); LYMPHOCYTES 18.9 %; MCH 30.3 pg (26.0-34.0); MCHC 35.2 g/dL (28.0-37.0); MCV 86.1 fL (80.0-100.0); MONOCYTES 8.1 %; MPV 8.6 fl. (7.2-11.1); NUCLEATED RBCS 0 /100WBC; PLATELET COUNT* 293 thou/uL (150-400); POLYS 70.9 %; RBC 5.08 mil/uL (4.50-6.00); RDW-CV 13.6 % (10.5-14.5); WBC 12.7 thou/uL (4.0-11.0)
[2020-07-21 01:35] LABS: CALCIUM 9.6 mg/dL (8.5-10.1); CREATININE 1.7 mg/dL (0.6-1.3); POTASSIUM 3.7 mmol/L (3.5-5.1)
[2020-07-21 01:40] LABS: ALBUMIN 4.8 g/dL (3.4-5.0); TOTAL BILIRUBIN 0.9 mg/dL (<0.1-1.0); TOTAL PROTEIN 8.9 g/dL (6.4-8.2)
[2020-07-21 01:42] LABS: URINE BILIRUBIN NEGATIVE (Negative); URINE BLOOD NEGATIVE (Negative); URINE CLARITY CLEAR; URINE COLOR YELLOW; URINE GLUCOSE-RANDOM NEGATIVE (Negative); URINE KETONES TRACE (Negative); URINE LEUKOCYTES-REFLEX NEGATIVE (Negative); URINE NITRITE-REFLEX NEGATIVE (Negative); URINE PROTEIN NEGATIVE (Negative); URINE SPECIFIC GRAVITY >= 1.030 (1.005-1.030); URINE UROBILINOGEN 0.2 E.U./dl (0.2-1.0)
[2020-07-21 01:49] LABS: AMP/METHAMP POSITIVE (Negative); BARBITURATES Negative (Negative); BENZODIAZEPINES POSITIVE (Negative); COCAINE Negative (Negative); METHADONE Negative (Negative); OPIATES Negative (Negative); PCP Negative (Negative); THC Negative (Negative)
[2020-07-21 01:58] LABS: ALCOHOL < 10 mg/dL (<10); SALICYLATE < 2.8 mg/dL (2.8-20.0)
[2020-07-21 02:01] LABS: ACETAMINOPHEN < 2 ug/mL (10-30)
[2020-07-22 15:20] VITALS: BP 146/91
== END 2020-07-22 15:20 ==
LOC: M.ERS 00:50
PROVIDERS: Family Medicine
DX: R45.851 Suicidal ideations (principal); F29 Unspecified psychosis not due to a substance or known physiological condition; F31.9 Bipolar disorder, unspecified; F20.9 Schizophrenia, unspecified; J45.909 Unspecified asthma, uncomplicated; Z79.899 Other long term (current) drug therapy; Z87.891 Personal history of nicotine dependence

== ENCOUNTER → 2020-08-05 | Emergency (ER) | payer MEDICAID ==
[~2020-08-05] VITALS: Ht 177.8 cm; Wt 81.7 kg
[2020-08-05 20:01] LABS: HEMATOCRIT 40.4 % (42.0-52.0); HEMOGLOBIN 13.9 gm/dL (14.0-18.0); MCH 29.9 pg (26.0-34.0); MCHC 34.4 g/dL (28.0-37.0); RBC 4.65 mil/uL (4.50-6.00); RDW-CV 13.3 % (10.5-14.5); WBC 13.2 thou/uL (4.0-11.0)
[2020-08-05 20:10] LABS: CALCIUM 9.9 mg/dL (8.5-10.1); CREATININE 1.2 mg/dL (0.6-1.3); POTASSIUM 3.9 mmol/L (3.5-5.1)
[2020-08-05 20:15] LABS: ALBUMIN 4.6 g/dL (3.4-5.0); TOTAL PROTEIN 8.6 g/dL (6.4-8.2)
[2020-08-05 20:17] LABS: SALICYLATE 4.7 mg/dL (2.8-20.0)
[2020-08-05 20:19] LABS: ACETAMINOPHEN < 2 ug/mL (10-30); ALCOHOL < 10 mg/dL (<10)
[2020-08-06 04:26] LABS: URINE BILIRUBIN NEGATIVE (Negative); URINE BLOOD NEGATIVE (Negative); URINE CLARITY CLEAR; URINE COLOR YELLOW; URINE GLUCOSE-RANDOM NEGATIVE (Negative); URINE KETONES 1+ (Negative); URINE LEUKOCYTES NEGATIVE (Negative); URINE NITRITE NEGATIVE (Negative); URINE PROTEIN NEGATIVE (Negative); URINE UROBILINOGEN 0.2 E.U./dl (0.2-1.0)
[2020-08-06 04:33] LABS: AMP/METHAMP POSITIVE (Negative); BARBITURATES Negative (Negative); BENZODIAZEPINES Negative (Negative); COCAINE Negative (Negative); METHADONE Negative (Negative); OPIATES Negative (Negative); PCP Negative (Negative); THC Negative (Negative)
[2020-08-06 15:16] VITALS: BP 128/72
--- NOTE | 2020-08-06 16:38 | EKG ---
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: Motor Bus Driver: : 1990 Requested By: Clarisa Mock Order Number: [id number] MD: Jevon Serrano Measurements Intervals [place] Rate: 109 P: 67 [place]: 146 QRS: 70 QRSD: 101 T: 260 QT: 332 QTc: 448 Interpretive Statements Sinus tachycardia Possible LVH with strain Repol abnrm, global ischemia or LV strain, diffuse leads Baseline wander in lead(s) V1 Compared to ECG 01/07/2020 07:56:16 Possible ischemia now present Sinus rate has increased Electronically Signed On 08-06-2020 16:38:43 PLANNED GIVING OFFICER by Jevon Serrano [email or web address] <ELECTRONICALLY SIGNED> By: Jevon Serrano MD, [facility] 08/06/20 1638 35 35 Jevon Serrano MD, [facility] /EPI
== END ==
LOC: M.ERS 19:18
PROVIDERS: Personal Emergency Response Attendant
DX: F24 Shared psychotic disorder (principal); R45.851 Suicidal ideations; F41.9 Anxiety disorder, unspecified; J45.909 Unspecified asthma, uncomplicated; F31.9 Bipolar disorder, unspecified; F20.9 Schizophrenia, unspecified; Z87.891 Personal history of nicotine dependence

== ENCOUNTER 2021-05-24 08:59 | Emergency (ER) | payer MEDICAID ==
[~2021-05-24] VITALS: Ht 170.2 cm; Wt 77.1 kg
[2021-05-24 09:33] LABS: ABSOLUTE LYMPHOCYTES 1.2 thou/uL (0.8-5.3); ABSOLUTE MONOCYTES 0.7 thou/uL (0.0-1.2); ABSOLUTE NEUTROPHILS 5.6 thou/uL (1.6-8.1); BASOPHILS 0.3 %; EOSINOPHILS 0.3 %; HEMATOCRIT 36.7 % (42.0-52.0); HEMOGLOBIN 12.6 gm/dL (14.0-18.0); LYMPHOCYTES 15.6 %; MCHC 34.3 g/dL (28.0-37.0); MCV 87.5 fL (80.0-100.0); MONOCYTES 9.6 %; MPV 8.4 fl. (7.2-11.1); NUCLEATED RBCS 0 /100WBC; PLATELET COUNT* 192 thou/uL (150-400); POLYS 74.2 %; RBC 4.19 mil/uL (4.50-6.00); RDW-CV 12.8 % (10.5-14.5); WBC 7.5 thou/uL (4.0-11.0)
[2021-05-24 09:42] LABS: CALCIUM 8.7 mg/dL (8.5-10.1); CREATININE 0.8 mg/dL (0.6-1.3); POTASSIUM 3.6 mmol/L (3.5-5.1)
--- NOTE | 2021-05-24 09:47 | EKG ---
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: : 1990 Requested By: Levy Menezes Order Number: [id number] MD: Jevon Serrano Measurements Intervals [place] Rate: 76 P: 35 ME: 161 QRS: 44 QRSD: 106 T: 210 QT: 402 QTc: 453 Interpretive Statements Sinus rhythm Probable LVH with secondary repol abnrm Abnormal T, probable ischemia, lateral leads Compared to ECG 08/05/2020 20:36:02 T-wave abnormality now present Sinus tachycardia no longer present Possible ischemia still present Electronically Signed On 05-24-2021 9:46:41 CDT by Jevon Serrano [email or web address] <ELECTRONICALLY SIGNED> By: Jevon Serrano MD, [facility] 05/24/21 0946 5 Jevon Serrano MD, [facility] /EPI
[2021-05-24 09:56] LABS: CK-MB MASS 5.5 ng/mL (<0.5-3.6); MAGNESIUM 2.1 mg/dL (1.8-2.4); TOTAL BILIRUBIN 0.9 mg/dL (<0.1-1.0)
[2021-05-24] MEDS ORDERED: BACTRIM DS TAB1 EACH PO (10:00)
[2021-05-24 10:13] VITALS: BP 140/70
== END 2021-05-24 10:13 | disposition home or self-care (01) ==
LOC: M.ERS 08:59
PROVIDERS: Family Medicine
DX: A49.02 Methicillin resistant Staphylococcus aureus infection, unspecified site (principal); R07.89 Other chest pain; F41.9 Anxiety disorder, unspecified; F31.9 Bipolar disorder, unspecified; J45.909 Unspecified asthma, uncomplicated; F20.9 Schizophrenia, unspecified; Z87.891 Personal history of nicotine dependence; Z79.899 Other long term (current) drug therapy

== ENCOUNTER 2021-06-21 20:22 | Emergency (ER) | payer MEDICAID ==
[~2021-06-21] VITALS: Ht 177.8 cm; Wt 81.7 kg
[2021-06-21 21:40] VITALS: BP 150/70
== END 2021-06-21 21:41 | disposition home or self-care (01) ==
LOC: M.ERS 20:22
DX: Z76.0 Encounter for issue of repeat prescription (principal); F41.9 Anxiety disorder, unspecified; J45.909 Unspecified asthma, uncomplicated; F20.9 Schizophrenia, unspecified; Z79.899 Other long term (current) drug therapy; Z87.891 Personal history of nicotine dependence

== ENCOUNTER → 2021-06-21 | Emergency (ER) | payer MEDICAID ==
[~2021-06-21] VITALS: Ht 177.8 cm; Wt 81.7 kg
[~2021-06-21] MED LIST changes: +NORVASC10 MG PO
[2021-06-21 00:54] LABS: ABSOLUTE BASOPHILS 0.1 thou/uL (0.0-0.2); ABSOLUTE EOSINOPHILS 0.5 thou/uL (0.0-0.7); ABSOLUTE LYMPHOCYTES 3.8 thou/uL (0.8-5.3); ABSOLUTE MONOCYTES 0.7 thou/uL (0.0-1.2); ABSOLUTE NEUTROPHILS 3.8 thou/uL (1.6-8.1); BASOPHILS 1.1 %; EOSINOPHILS 5.7 %; HEMATOCRIT 40.7 % (42.0-52.0); HEMOGLOBIN 14.5 gm/dL (14.0-18.0); LYMPHOCYTES 42.7 %; MCH 30.4 pg (26.0-34.0); MCHC 35.6 g/dL (28.0-37.0); MCV 85.4 fL (80.0-100.0); MONOCYTES 7.4 %; MPV 8.8 fl. (7.2-11.1); NUCLEATED RBCS 0 /100WBC; PLATELET COUNT* 224 thou/uL (150-400); POLYS 43.1 %; RBC 4.77 mil/uL (4.50-6.00); RDW-CV 12.2 % (10.5-14.5); WBC 8.8 thou/uL (4.0-11.0)
[2021-06-21 01:01] LABS: CALCIUM 9.4 mg/dL (8.5-10.1); CREATININE 1.1 mg/dL (0.6-1.3); POTASSIUM 3.6 mmol/L (3.5-5.1)
[2021-06-21 01:06] LABS: ALBUMIN 4.7 g/dL (3.4-5.0); TOTAL BILIRUBIN 0.9 mg/dL (<0.1-1.0); TOTAL PROTEIN 8.3 g/dL (6.4-8.2)
[2021-06-21 02:05] VITALS: BP 140/61
--- NOTE | 2021-06-21 09:53 | EKG ---
[place] [address] ELECTROCARDIOGRAM REPORT Name: DANIELLE CAMPUZANO Room: [facility]#: [id number] Admission: 06/21/21 Attend Phys: Discharge: Date of : [birth year] Date of Service: 06/21/21 0016 Report #: [id number] THIS REPORT FOR: //name// [facility] ED Test Date: 2021-06-21 Test Time: 00:16:52 Pat Name: DANIELLE CAMPUZANO Department: Room: Gender: Grave Digger: : 1990 Requested By: Ruthann Polk Order Number: [id number] MD: Jevon Serrano Measurements Intervals [place] Rate: 60 P: CT: 173 QRS: 68 QRSD: 107 T: 247 QT: 440 QTc: 440 Interpretive Statements Atrial-paced rhythm Probable LVH with secondary repol abnrm Repol abnrm,most compatible with LV strain Anterior ST elevation, probably due to LVH Compared to ECG 05/24/2021 09:06:09 ST (T wave) deviation persists atrial pacing is noted Electronically Signed On 06-21-2021 9:52:53 CDT by Jevon Serrano [email or web address] <ELECTRONICALLY SIGNED> By: Jveon Serrano MD, [facility] 06/21/21 0952 0016 0016 Jevon Serrano MD, [facility] /EPI
== END ==
LOC: M.ERS 00:11
PROVIDERS: Emergency Medicine
DX: R07.89 Other chest pain (principal); Z20.822 Contact with and (suspected) exposure to COVID-19; F41.9 Anxiety disorder, unspecified; J45.909 Unspecified asthma, uncomplicated; F20.9 Schizophrenia, unspecified; Z79.899 Other long term (current) drug therapy; Z87.891 Personal history of nicotine dependence

== ENCOUNTER 2021-06-22 05:50 | Emergency (ER) | payer MEDICAID ==
[~2021-06-22] VITALS: Ht 177.8 cm; Wt 81.7 kg
[2021-06-22 06:53] VITALS: BP 161/104
--- NOTE | 2021-06-22 11:52 | EKG ---
[place] [address] ELECTROCARDIOGRAM REPORT Name: DANIELLE CAMPUZANO Room: [facility]#: [id number] Admission: 06/22/21 Attend Phys: Discharge: 06/22/21 Date of : [birth year] Date of Service: 06/22/21 0552 Report #: [id number] THIS REPORT FOR: //name// [facility] ED Test Date: 2021-06-22 Test Time: 05:52:45 Pat Name: DANIELLE CAMPUZANO Department: Room: Gender: Ip Litigation Paralegal: : 1990 Requested By: Ruthann Polk Order Number: [id number] MD: Gerry Mccormick Measurements Intervals [place] Rate: 82 P: 62 SD: 151 QRS: 61 QRSD: 112 T: 234 QT: 404 QTc: 472 Interpretive Statements Sinus rhythm LVH with IVCD and secondary repol abnrm ST depr, consider ischemia, inferior leads Borderline prolonged QT interval Compared to ECG 06/21/2021 00:16:52 Intraventricular conduction delay now present Possible ischemia now present Atrial-paced complex(es) or rhythm no longer present Ventricular-paced complex(es) or rhythm no longer present ST (T wave) deviation no longer present Electronically Signed On 06-22-2021 11:52:31 CDT by Gerry Mccormick [email or web address] <ELECTRONICALLY SIGNED> By: Jose Mccormick MD, [facility] 06/22/21 1152 0552 0552 Jose Mccormick MD, [facility] /EPI
== END 2021-06-22 06:54 | disposition home or self-care (01) ==
LOC: M.ERS 05:50
DX: R00.2 Palpitations (principal); F41.9 Anxiety disorder, unspecified; J45.909 Unspecified asthma, uncomplicated; F20.9 Schizophrenia, unspecified; Z79.899 Other long term (current) drug therapy; Z87.891 Personal history of nicotine dependence

== ENCOUNTER 2021-07-04 21:57 | Emergency (ER) | payer MEDICAID ==
[~2021-07-04] VITALS: Ht 177.8 cm; Wt 79.4 kg
[~2021-07-04 21:57] MED LIST changes: +DESYREL150 MG PO; +NEURONTIN 300M300 M2 PO
[2021-07-04 22:20] VITALS: BP 138/81
== END 2021-07-04 22:22 | disposition home or self-care (01) ==
LOC: M.ERS 21:57
DX: R05.1 Acute cough (principal); R07.89 Other chest pain; R06.02 Shortness of breath

== ENCOUNTER 2021-11-10 22:16 | Emergency (ER) | payer MEDICAID ==
[~2021-11-10] VITALS: Ht 177.8 cm; Wt 79.4 kg
[2021-11-11 01:52] VITALS: BP 144/89
== END 2021-11-11 01:52 | disposition home or self-care (01) ==
LOC: M.ERS 22:16
DX: F15.10 Other stimulant abuse, uncomplicated (principal); F41.9 Anxiety disorder, unspecified; F31.9 Bipolar disorder, unspecified; J45.909 Unspecified asthma, uncomplicated; F19.10 Other psychoactive substance abuse, uncomplicated; F20.9 Schizophrenia, unspecified; Z79.51 Long term (current) use of inhaled steroids; Z79.899 Other long term (current) drug therapy; Z87.891 Personal history of nicotine dependence